=== PATIENT | male | born 1960 | race Two or more races ===

== ENCOUNTER 2022-06-20 05:28 | Inpatient (IN) | payer MEDICAID ==
[~2022-06-20] VITALS: Ht 182.9 cm; Wt 85.0 kg
[2022-06-20 06:09] LABS: Basophils # (auto) 0.1 10 ^3/uL (0-0.2); Basophils % (auto) 1.2 % (0.0-2.0); Eosinophils # (auto) 0.2 10 ^3/uL (0-0.8); Eosinophils % (auto) 2.9 % (0.0-7.0); Hematocrit 42.5 % (41.0-53.0); Hemoglobin 14.3 g/dL (13.5-17.5); Lymphocytes # (auto) 1.4 10 ^3/uL (0.4-5.4); Lymphocytes % (auto) 16.2 % (10.0-50.0); Mean Corpuscular Hemoglobin 30.8 pg (28.0-32.0); Mean Corpuscular Hgb Conc. 33.5 g/dL (32.0-36.0); Mean Corpuscular Volume 91.7 fL (80.0-100.0); Monocytes # (auto) 0.9 10 ^3/uL (0-1.3); Monocytes % (auto) 10.5 % (0.0-12.0); Neutrophils # (auto) 5.9 10 ^3/uL (1.6-8.6); Neutrophils % (auto) 69.2 % (37.0-80.0); Nucleated Red Blood Cells % 0.1 %; Red Blood Cells 4.64 10^6/uL (4.5-5.90); White Blood Cell 8.5 10^3/uL (4.4-10.8)
[2022-06-20 06:24] LABS: INR 1.12 (0.9-1.15)
[2022-06-20 06:37] LABS: Albumin 3.1 g/dL (3.4-5.0); Calcium 8.8 mg/dL (8.5-10.1); Potassium 4.7 mmol/L (3.5-5.1)
[2022-06-20 06:42] LABS: BUN/Creatinine Ratio 19.7 (10.0-20.0); Total Protein 6.6 g/dL (6.4-8.2)
[2022-06-20] MEDS ORDERED: ASPirin 81 mg TAB PO ONE (09:00)
[2022-06-20] MEDS ORDERED: FUROSEMIDE 40 MG/4 ML VIAL IV ONE (09:00)
[2022-06-20] MEDS ORDERED: NICOTINE 21MG/24 HR TOPICAL PATCH TD ONE (09:15)
[2022-06-20] MEDS ORDERED: MORPHINE SULFATE INJ 2 MG/ml SYRG IV PRN (09:15)
[2022-06-20] MEDS ORDERED: NITROGLYCERIN 0.4 MG SL TAB SL PRN (09:15)
[2022-06-20] MEDS ORDERED: PANT40T PO (09:21)
[2022-06-20] MEDS ORDERED: FURO40TA4 PO (09:21)
[2022-06-20] MEDS ORDERED: LISI2.5T47 PO (09:21)
[2022-06-20] MEDS ORDERED: CARV3.1240 PO (09:21)
[2022-06-20] MEDS ORDERED: ENOXAPARIN SOD 100 MG/1 ML SYRINGE SC ONE (09:45)
[2022-06-20] MEDS: PANTOPRAZOLE 40 MG TAB PO SCH (09:58)
[2022-06-20] MEDS: CARVEDILOL 3.125 MG TAB PO SCH ×2 (09:59→21:46)
[2022-06-20] MEDS ORDERED: ENOXAPARIN SOD 100 MG/1 ML SYRINGE SC SCH (10:00)
[2022-06-20] MEDS ORDERED: FUROSEMIDE 20 MG/2 ML VIAL IV SCH (10:00)
[2022-06-20 10:02] LABS: Cholesterol 123 mg/dL (< 200); Triglycerides 82 mg/dL (< 150)
[2022-06-20 10:05] LABS: HDL Cholesterol 36 mg/dL (40-59); LDL Cholesterol 75 mg/dL (< 100)
[2022-06-20] MEDS: ENOXAPARIN SOD 100 MG/1 ML SYRINGE SC SCH (21:46)
[2022-06-21 06:30] LABS: Basophils # (auto) 0.2 10 ^3/uL (0-0.2); Basophils % (auto) 2.6 % (0.0-2.0); Eosinophils # (auto) 0.5 10 ^3/uL (0-0.8); Eosinophils % (auto) 6.3 % (0.0-7.0); Hematocrit 40.9 % (41.0-53.0); Hemoglobin 13.8 g/dL (13.5-17.5); Lymphocytes # (auto) 1.7 10 ^3/uL (0.4-5.4); Lymphocytes % (auto) 23.4 % (10.0-50.0); Mean Corpuscular Hemoglobin 30.6 pg (28.0-32.0); Mean Corpuscular Hgb Conc. 33.7 g/dL (32.0-36.0); Mean Corpuscular Volume 90.8 fL (80.0-100.0); Monocytes # (auto) 0.7 10 ^3/uL (0-1.3); Monocytes % (auto) 9.8 % (0.0-12.0); Neutrophils # (auto) 4.2 10 ^3/uL (1.6-8.6); Neutrophils % (auto) 57.9 % (37.0-80.0); Nucleated Red Blood Cells % 0.1 %; Red Cell Distribution Width 14.5 % (11.8-14.3); White Blood Cell 7.3 10^3/uL (4.4-10.8)
[2022-06-21 06:49] LABS: Calcium 8.5 mg/dL (8.5-10.1); Potassium 4.5 mmol/L (3.5-5.1)
[2022-06-21 06:50] LABS: BUN/Creatinine Ratio 20.5 (10.0-20.0); Phosphorus 2.2 mg/dL (2.5-4.90); Uric Acid 9.8 mg/dL (3.5-7.2)
[2022-06-21 09:44] LABS: Urine Bacteria FEW /hpf (None Seen); Urine Blood TRACE /uL (Negative); Urine Specific Gravity 1.019 (1.001-1.035); Urine WBC 12 /hpf (0 - 3)
[2022-06-21] MEDS: FUROSEMIDE 20 MG/2 ML VIAL IV SCH (09:48)
[2022-06-21] MEDS: ASPirin 81 mg TAB PO SCH (09:48)
[2022-06-21] MEDS: CARVEDILOL 3.125 MG TAB PO SCH ×2 (09:49→22:24)
[2022-06-21] MEDS: PANTOPRAZOLE 40 MG TAB PO SCH (09:49)
[2022-06-21] MEDS: NICOTINE 21MG/24 HR TOPICAL PATCH TD SCH (09:49)
[2022-06-21] MEDS: ENOXAPARIN SOD 100 MG/1 ML SYRINGE SC SCH ×2 (09:49→22:24)
[2022-06-21 09:58] LABS: Protein, Urine 32.4 mg/dL (0.0-11.9)
[2022-06-21] MEDS ORDERED: ALBUTEROL SULF 2.5 MG/0.5ML(0.5%) NEB SOLN NEB PRN (13:30)
[2022-06-21] MEDS ORDERED: IPRATROPIUM BROM 0.5 MG/2.5ML INH SOL NEB PRN (13:30)
[2022-06-21] MEDS ORDERED: methylPREDNISolone SOD SUCC 40 MG/ML VL IV SCH (14:00)
[2022-06-21 14:40] VITALS: BP 116/82
[2022-06-21] MEDS: methylPREDNISolone SOD SUCC 40 MG/ML VL IV SCH ×2 (15:30→22:23)
[2022-06-21 17:00] VITALS: BP 124/90
[2022-06-21 20:00] VITALS: BP 129/86
[2022-06-21 22:00] VITALS: BP 129/86
[2022-06-21] MEDS: ATORVASTATIN 20 MG TAB PO SCH (22:24)
[2022-06-22] MEDS: TEMAZEPAM 15 MG CAP PO PRN ×2 (01:00→22:25)
[2022-06-22 05:00] VITALS: BP 129/98
[2022-06-22 05:42] LABS: Calcium 8.6 mg/dL (8.5-10.1); Potassium 4.5 mmol/L (3.5-5.1)
[2022-06-22] MEDS: methylPREDNISolone SOD SUCC 40 MG/ML VL IV SCH ×3 (05:59→22:27)
[2022-06-22 08:30] VITALS: BP 133/101
[2022-06-22 09:00] VITALS: BP 139/98
[2022-06-22] MEDS: ASPirin 81 mg TAB PO SCH (09:23)
[2022-06-22] MEDS: PANTOPRAZOLE 40 MG TAB PO SCH (09:23)
[2022-06-22] MEDS: cefTRIAXone 1GM/50ML D5W 50 ML IV SCH (09:24)
[2022-06-22] MEDS: FUROSEMIDE 20 MG/2 ML VIAL IV SCH (09:24)
[2022-06-22] MEDS: CARVEDILOL 3.125 MG TAB PO SCH ×2 (09:24→22:27)
[2022-06-22] MEDS: ENOXAPARIN SOD 100 MG/1 ML SYRINGE SC SCH (09:24)
[2022-06-22] MEDS: NICOTINE 21MG/24 HR TOPICAL PATCH TD SCH (09:30)
[2022-06-22] MEDS ORDERED: levoFLOXacin 500MG 100 ML IV SCH (10:00)
[2022-06-22 13:00] VITALS: BP 116/66
[2022-06-22 16:00] LABS: Amphetamine Screen, Urine POSITIVE (NEGATIVE); Barbiturate Scree,Urine NEGATIVE (NEGATIVE); Benzodiazephine Screen, Urine NEGATIVE (NEGATIVE); Cannabinoid Screen, Urine NEGATIVE (NEGATIVE); Cocaine Screen, Urine NEGATIVE (NEGATIVE)
[2022-06-22 16:09] LABS: Opiate Scree,Urine NEGATIVE (NEGATIVE); Phencyclidine Screen, Urine NEGATIVE (NEGATIVE)
[2022-06-22 17:18] VITALS: BP 133/94
[2022-06-22 22:00] VITALS: BP 132/89
[2022-06-22] MEDS: SACUBITRIL-VALSARTAN 24mg/26mg TAB PO SCH (22:25)
[2022-06-22] MEDS: ATORVASTATIN 20 MG TAB PO SCH (22:27)
[2022-06-22] MEDS: APIXABAN 5 MG TAB PO SCH (22:28)
[2022-06-23 05:00] VITALS: BP 132/91
[2022-06-23] MEDS: methylPREDNISolone SOD SUCC 40 MG/ML VL IV SCH ×2 (05:50→12:58)
[2022-06-23] MEDS: cefTRIAXone 1GM/50ML D5W 50 ML IV SCH (08:48)
[2022-06-23] MEDS: SACUBITRIL-VALSARTAN 24mg/26mg TAB PO SCH (08:49)
[2022-06-23] MEDS: NICOTINE 21MG/24 HR TOPICAL PATCH TD SCH (08:49)
[2022-06-23] MEDS: APIXABAN 5 MG TAB PO SCH (08:49)
[2022-06-23] MEDS: ASPirin 81 mg TAB PO SCH (08:49)
[2022-06-23] MEDS: CARVEDILOL 3.125 MG TAB PO SCH (08:50)
[2022-06-23] MEDS: PANTOPRAZOLE 40 MG TAB PO SCH (08:50)
[2022-06-23 09:00] VITALS: BP 142/96
[2022-06-23 12:00] LABS: BUN/Creatinine Ratio 20.7 (10.0-20.0); Calcium 8.4 mg/dL (8.5-10.1); Potassium 4.6 mmol/L (3.5-5.1)
[2022-06-23 13:00] VITALS: BP 135/87
[2022-06-23] MEDS ORDERED: FURO40TA4 PO (15:54)
[2022-06-23] MEDS ORDERED: PANT40T PO (15:54)
[2022-06-23] MEDS ORDERED: LISI2.5T47 PO (15:54)
[2022-06-23] MEDS ORDERED: APIX2.5T PO (15:54)
[2022-06-23] MEDS ORDERED: CARV3.1240 PO (15:54)
[2022-06-23 16:11] VITALS: BP 140/92
[2022-06-23 17:00] VITALS: BP 125/93
== END 2022-06-23 20:05 | disposition home or self-care (01) | DRG 190 ==
LOC: ER 05:28 → TELE 09:21 → TELE-EAST 06-21 14:03
PROVIDERS: ADMIT Nurse Practitioner Family; ATTEND Hospitalist
DX: I21.4 Non-ST elevation (NSTEMI) myocardial infarction (principal); I50.41 Acute combined systolic (congestive) and diastolic (congestive) heart failure; N17.9 Acute kidney failure, unspecified; I27.20 Pulmonary hypertension, unspecified; I42.0 Dilated cardiomyopathy; I13.0 Hypertensive heart and chronic kidney disease with heart failure and stage 1 through stage 4 chronic kidney disease, or unspecified chronic kidney disease; N18.32 Chronic kidney disease, stage 3b; I08.0 Rheumatic disorders of both mitral and aortic valves; J91.8 Pleural effusion in other conditions classified elsewhere; F15.10 Other stimulant abuse, uncomplicated; F17.210 Nicotine dependence, cigarettes, uncomplicated; Z79.899 Other long term (current) drug therapy
CPT/HCPCS: 36415; 71045; 76775; 80048; 80053; 80061; 80307; 81001; 82570; 83036; 83880; 84100; 84156; 84300; 84443; 84484; 84550; 85025; 85610; 85730; 93005; 93306; 93971; 96374; 97163; G0378; J0696

== ENCOUNTER 2024-04-03 17:04 | Inpatient (IN) | payer MEDICAID ==
[~2024-04-03] VITALS: Ht 185.4 cm; Wt 158.5 kg
[2024-04-03] MEDS: HEPARIN DRIP/D5W 100UNITS/ML 250 ML IV SCH (01:45)
[~2024-04-03 17:04] MED LIST: APIX2.5T PO; CARV3.1240 PO; FURO40TA4 PO; LISI2.5T47 PO; PANT40T PO
--- NOTE | 2024-04-03 17:38 | DVH ---
CHEST RADIOGRAPH Indication: cp Technique: Single frontal view of the chest was obtained Comparison: XY CHEST PORTABLE on DOS: 06/20/22 FINDINGS: Lines and Tubes: None Lungs: No focal consolidation. Pleura: No effusion. No pneumothorax. Cardiomediastinal contours: Cardiac size unchanged from 06/20/2022 Bones: No acute osseous abnormality. IMPRESSION: 1. No acute cardiopulmonary disease.
--- NOTE | 2024-04-03 17:54 | ED.PDOC ---
History of Present Illness HPI Comments 64-year-old male who comes in with chief complaint of shortness a breath as well as some chest pain. The patient states that the shortness for breath started approximately four days ago. The patient then started with some left-sided chest pain which she states started a week ago but has worsened over the past couple of days. There has been no cough, fever or chills. The patient was able to ambulate into the emergency department's without any difficulty. Chief Complaint: Shortness of Breath Time Seen by MD: 17:06 Primary Care Provider: NONE Reviewed Notes: Nurses Notes, Medications, Allergies (No allergies to medications) Allergies: Coded Allergies: NO KNOWN ALLERGIES (Unverified , 06/20/22) Home Meds Active Scripts Apixaban Base (ELIQUIS) 2.5 Mg Tab, 2.5 MG PO BID, #90 TAB Prov:DONALD LIMA MD 06/23/22 Pantoprazole Sodium Sesquihydr (Pantoprazole Sodium) 40 Mg Tab, 1 TAB PO DAILY, #30 TAB Prov:DONALD LIMA MD 06/23/22 Furosemide (Furosemide) 40 Mg Tab, 1 TAB PO BID, #90 TAB Prov:DONALD LIMA MD 06/23/22 Lisinopril (Lisinopril) 2.5 Mg Tab, 1 TAB PO BID, #60 TAB Prov:DONALD LIMA MD 06/23/22 Carvedilol (Carvedilol) 3.125 Mg Tab, 1 TAB PO BID, #90 TAB Prov:DONALD LIMA MD 06/23/22 Information Source: Patient Mode of Arrival: Ambulatory Severity: Moderate Timing: Days Duration: Since onset Prehospital treatment: None Location: Left-sided chest pain that is nonradiating. The pain is somewhat pressure-like and associated with shortness for breath Past Medical History PAST MEDICAL HISTORY: CHF Surgical History (Other): Penile surgery Family History Family History: Reviewed,noncontributory to illness Social History Smoker: Cigarettes Alcohol: Denies ETOH Use Drugs: Methamphetamine Lives In: Home Constitutional: denies: chills, diaphoresis, fatigue, fever, malaise, sweats, weakness, others EENTM: denies: blurred vision, double vision, ear bleeding, ear discharge, ear drainage, ear pain, ear ringing, eye pain, eye redness, hearing loss, mouth pain, mouth swelling, nasal discharge, nose bleeding, nose congestion, nose pain, photophobia, tearing, throat pain, throat swelling, voice changes, others Respiratory: reports: shortness of breath; denies: cough, hemoptysis, orthopnea, SOB at rest, SOB with excertion, stridor, wheezing, others Cardiovascular: reports: chest pain; denies: dizzy spells, diaphoresis, Dyspnea on exertion, edema, irregular heart beat, left arm pain, lightheadedness, palpitations, PND, syncope, others Gastrointestinal: denies: abdomen distended, abdominal pain, blood streaked bowels, constipated, diarrhea, dysphagia, difficulty swallowing, hematemesis, melena, nausea, poor appetite, poor fluid intake, rectal bleeding, rectal pain, vomiting, others Genitourinary: denies: burning, dysuria, flank pain, frequency, hematuria, incontinence, penile discharge, penile sore, pain, testicle pain, testicle swelling, urgency, others Neurological: denies: dizziness, fainting, headache, left sided numbness, left sided weakness, numbness, paresthesia, pre-existing deficit, right sided numbness, right sided weakness, seizure, speech problems, tingling, tremors, weakness, others Musculoskeletal: denies: back pain, gout, joint pain, joint swelling, muscle pain, muscle stiffness, neck pain, others Integumetry: denies: bruises, change in color, change in hair/nails, dryness, laceration, lesions, lumps, rash, wounds, others Allergic/Immunocompromised: denies: Difficulty Healing, Frequent Infections, Hives, Itching, others Hematologic/Lymphatic: denies: anemia, blood clots, easy bleeding, easy bruising, swollen glands, others Endocrine: denies: excessive hunger, excessive sweating, excessive thirst, excessive urination, flushing, intolerance to cold, intolerance to heat, u nexplained weight gain, unexplained weight loss, others Psychiatric: denies: anxiety, bipolar disorder, depression, hopeless, panic disorder, schizophrenia, sleepless, suicidal, others Physical Exam General Appearance: Moderate Distress HEENT: Normal ENT Inspection, Pharynx Normal, TMs Normal Neck: Full Range of Motion, Non-Tender, Normal, Normal Inspection Respiratory: Chest Non-Tender, Lungs Clear, No Accessory Muscle Use, No Respiratory Distress, Normal Breath Sounds Cardiovascular: No Edema, No JVD, No Murmur, No Gallop, Normal Peripheral Pulses, Regular Rate/Rhythm Breast Exam: Deferred Gastrointestinal: No Organomegaly, Non Tender, No Pulsatile Mass, Normal Bowel Sounds, Soft Genitalia: Deferred Pelvic: Deferred Rectal: Deferred Extremities: No calf tenderness, Normal capillary refill, Normal inspection, Normal range of motion, Non-tender, No pedal edema Musculoskeletal : Apperance: Normal Neurologic: Alert, snorkelling instructor II-XII nml as Tested, No Motor Deficits, Normal Affect, Normal Mood, No Sensory Deficits Cerebellar Function: Normal Reflexes: Normal Skin: Dry, Normal Color, Warm Lymphatic: No Adenopathy Was a procedure done? Was a procedure done?: No EKG EKG : Pulse Rate (adult): 114 [place]: Normal Cardiac Rhythm: ST Hypertrophy: LAE ST: Nonsp Differential Dx Considerations may include: Generalized weakness, chest pain, shortness for breath, COPD X-Ray, Labs, Meds, VS Vital Signs Date Time Temp Pulse Resp B/P (MAP) Pulse Ox O2 Delivery O2 Flow Rate FiO2 04/03/24 17:54 114 04/03/24 17:31 20 96 Room Air 0 04/03/24 17:21 98.1 113 15 154/88 (110) 96 04/03/24 17:19 114 Lab Test 04/03/24 19:09 04/03/24 17:47 Range/Units Troponin I High Sensitivity Pending 255 *H </=54 ng/L White Blood Count 8.2 4.4-10.8 10^3/uL Red Blood Count 4.42 L 4.5-5.90 10^6/uL Hemoglobin 13.5 13.5-17.5 g/dL Hematocrit 40.7 L 41.0-53.0 % Mean Corpuscular Volume 91.9 80.0-100.0 fL Mean Corpuscular Hemoglobin 30.5 28.0-32.0 pg Mean Corpuscular Hemoglobin Concent 33.1 32.0-36.0 g/dL Red Cell Distribution Width 14.7 H 11.8-14.3 % Platelet Count 337 140-450 10^3/uL Mean Platelet Volume 8.2 6.9-10.8 fL Neutrophils (%) (Auto) 69.5 37.0-80.0 % Lymphocytes (%) (Auto) 14.7 10.0-50.0 % Monocytes (%) (Auto) 9.5 0.0-12.0 % Eosinophils (%) (Auto) 4.4 0.0-7.0 % Basophils (%) (Auto) 1.9 0.0-2.0 % Neutrophils # (Auto) 5.7 1.6-8.6 10 ^3/uL Lymphocytes # (Auto) 1.2 0.4-5.4 10 ^3/uL Monocytes # (Auto) 0.8 0-1.3 10 ^3/uL Eosinophils # (Auto) 0.4 0-0.8 10 ^3/uL Basophils # (Auto) 0.2 0-0.2 10 ^3/uL Nucleated Red Blood Cells 0.1 % Prothrombin Time Pending Prothrombin Time INR Pending Activated Partial Thromboplast Time Pending Sodium Level 141 136-145 mmol/L Potassium Level 4.9 3.5-5.1 mmol/L Chloride Level 108 H 98-107 mmol/L Carbon Dioxide Level 24 20-31 mmol/L Anion Gap 9 5-15 Blood Urea Nitrogen 34 H 9-23 mg/dL Creatinine 2.09 H 0.700-1.30 mg/dL Glomerular Filtration Rate Calc 35 >90 mL/min BUN/Creatinine Ratio 16.3 10.0-20.0 Serum Glucose 78 74-106 mg/dL Calcium Level 9.5 8.7-10.4 mg/dL B-Type Natriuretic Peptide 1325.35 0-100 pg/mL IV Hep-Lock was established The BNP is 1325 The 1st troponin level came back at 255 The CBC and chemistry panel shows a BUN of 34 and a creatinine at 2.09 The patient was being given Lopressor for the elevated heart rate The patient was given aspirin here in the emergency department's The patient was being started on heparin 4000 units IV push The patient will then be started on the heparin drip The chest x-ray is negative We did speak with Dr. Hargrove who is the tetryl screen operator on-call and he will be consulting on this patient Images Reviewed?: Images reviewed and evaluated by me Time of 1ST Reevaluation: 18:52 Reevaluation 1ST: Unchanged Patient Education/Counseling: Diagnosis, Treatment, Prognosis Family Education/Counseling: No Family Present Departure 1 Departure Time of Disposition: 18:56 Impression: Primary Impression: NSTEMI (non-ST elevated myocardial infarction) Additional Impression: Elevated troponin Disposition: 09 ADMITTED INPATIENT Admit to: Tele Condition: Fair Critical Care Note Critical Care Time?: Yes (45 min-critical care time only) Stability Stability form required: Yes Unstable for transfer: ICU, CCU, PCU, SH[facility]ON (Intensive VS monitoring), ED Physician Assesment (Clinical assesment) Heart Score Heart Score: Heart Score Response (Comments) Value History Moderate Suspicious 1 EKG Repolarization Disturb 1 Age 45-64 1 Risk Factors >3 or Hx ASHD 2 Troponin >3 x's Normal limit 2 Total 7 JESSICA OCONNELL MD Apr 03, 2024 17:54
[2024-04-03 18:15] LABS: Basophils # (auto) 0.2 10 ^3/uL (0-0.2); Basophils % (auto) 1.9 % (0.0-2.0); Eosinophils # (auto) 0.4 10 ^3/uL (0-0.8); Eosinophils % (auto) 4.4 % (0.0-7.0); Hematocrit 40.7 % (41.0-53.0); Hemoglobin 13.5 g/dL (13.5-17.5); Lymphocytes # (auto) 1.2 10 ^3/uL (0.4-5.4); Lymphocytes % (auto) 14.7 % (10.0-50.0); Mean Corpuscular Hemoglobin 30.5 pg (28.0-32.0); Mean Corpuscular Hgb Conc. 33.1 g/dL (32.0-36.0); Mean Corpuscular Volume 91.9 fL (80.0-100.0); Monocytes # (auto) 0.8 10 ^3/uL (0-1.3); Monocytes % (auto) 9.5 % (0.0-12.0); Neutrophils # (auto) 5.7 10 ^3/uL (1.6-8.6); Neutrophils % (auto) 69.5 % (37.0-80.0); Nucleated Red Blood Cells % 0.1 %; Platelet Count (auto) 337 10^3/uL (140-450); Red Blood Cells 4.42 10^6/uL (4.5-5.90); Red Cell Distribution Width 14.7 % (11.8-14.3); White Blood Cell 8.2 10^3/uL (4.4-10.8)
[2024-04-03 18:36] LABS: Potassium 4.9 mmol/L (3.5-5.1); Sodium 141 mmol/L (136-145)
[2024-04-03 18:37] LABS: Anion Gap 9 (5-15); Carbon Dioxide 24 mmol/L (20-31)
[2024-04-03 18:38] LABS: Calcium 9.5 mg/dL (8.7-10.4)
[2024-04-03 18:39] LABS: Chloride 108 mmol/L (98-107)
[2024-04-03 18:42] LABS: Glucose 78 mg/dL (74-106)
[2024-04-03 18:43] LABS: BUN/Creatinine Ratio 16.3 (10.0-20.0)
[2024-04-03 18:46] LABS: Blood Urea Nitrogen 34 mg/dL (9-23)
[2024-04-03] MEDS ORDERED: TEMAZEPAM 15 MG CAP PO PRN (19:45)
[2024-04-03] MEDS ORDERED: NITROGLYCERIN 0.4 MG SL TAB SL PRN (19:45)
[2024-04-03] MEDS ORDERED: ONDANSETRON HCL 4 MG/2 ML VIAL IV PRN (19:45)
[2024-04-03] MEDS ORDERED: MORPHINE SULFATE INJ 2 MG/ml SYRG IV PRN (19:45)
[2024-04-03 19:51] LABS: INR 1.11 (0.9-1.15); Partial Thromboplastin Time 29.2 SEC (24.5-34.5); Prothrombin Time 11.6 sec (9.3-11.8)
--- NOTE | 2024-04-03 23:25 | DVHHP2 ---
History of Present Illness Reason for Visit: Shortness for breath History of Present Illness 64-year-old male presents for evaluation of shortness for breath. Patient reports a four day history worsening shortness for breath with associated intermittent left-sided sharp pain. He denies nausea or vomiting. Denies cough or fever. He also reports bilateral lower extremity mild edema with redness. Past Medical History Hypertension and congestive heart failure Past Surgical History Denies Family History Noncontributory Smoke: No ALCOHOL: none Drugs: None Lives: with Family Review of Systems Review of Systems Review of systems are currently negative otherwise addressed in HPI. Allergies: Coded Allergies: NO KNOWN ALLERGIES (Unverified , 06/20/22) Medications Current Medications Medications Dose Ordered Sig/Piedad Route Start Time Stop Time Status Last Admin Dose Admin Heparin Sodium/ Dextrose 250 ml @ 10 mls/hr Q24H IV 04/03/24 19:00 Aspirin 162 mg DAILY PO 04/04/24 10:00 Atorvastatin Calcium 20 mg HS PO 04/03/24 22:00 Furosemide 20 mg DAILY IV 04/04/24 10:00 Carvedilol 3.125 mg Q12HR PO 04/03/24 22:00 Lisinopril 2.5 mg DAILY PO 04/04/24 10:00 Temazepam 15 mg QHSP PRN PO 04/03/24 19:45 Ondansetron HCl 4 mg Q4HP PRN IV 04/03/24 19:45 Nitroglycerin 0.4 mg Q5MINP PRN SL 04/03/24 19:45 Morphine Sulfate 2 mg Q30M PRN IV 04/03/24 19:45 Exam Vital Signs Vital Signs Date Time Temp Pulse Resp B/P (MAP) Pulse Ox O2 Delivery O2 Flow Rate FiO2 04/03/24 17:54 114 04/03/24 17:31 20 96 Room Air 0 04/03/24 17:21 98.1 154/88 (110) Exam Gen: 63-year-old male in mild distress Skin: Warm, dry, normal color and texture, no rash. HEENT: Normocephalic atraumatic, mucous membranes moist and pink. Neck: Cervical and supraclavicular nodes normal without enlargement, trachea is midline, thyroid gland is normal without masses. Pulmonary: Clear to auscultation and percussion bilaterally. Cardiac: Regular rate and rhythm. No murmur Abdomen: Soft, nontender, nondistended, bowel sounds present all 4 quadrants, no guarding, no rigidity, no organomegaly. Extremities: No cyanosis, clubbing, plus one bilateral pedal edema with mild erythema Neuro: Cranial nerves II through XII grossly intact, normal affect and speech, no focal motor deficits. Labs/Xrays ORDERING PHYSICIAN: JESSICA OCONNELL MD PROCEDURE(s): CXRP - CHEST PORTABLE REASON: cp ORDER NUMBER(s): [id number], ACCESSION NUMBER(s): [id number] CHEST RADIOGRAPH Indication: cp Technique: Single frontal view of the chest was obtained Comparison: XY CHEST PORTABLE on DOS: 06/20/22 FINDINGS: Lines and Tubes: None Lungs: No focal consolidation. Pleura: No effusion. No pneumothorax. Cardiomediastinal contours: Cardiac size unchanged from 06/20/2022 Bones: No acute osseous abnormality. IMPRESSION: 1. No acute cardiopulmonary disease. Labs Test 04/03/24 20:56 04/03/24 17:47 Range/Units Troponin I High Sensitivity 259 *H </=54 ng/L White Blood Count 8.2 4.4-10.8 10^3/uL Red Blood Count 4.42 L 4.5-5.90 10^6/uL Hemoglobin 13.5 13.5-17.5 g/dL Hematocrit 40.7 L 41.0-53.0 % Mean Corpuscular Volume 91.9 80.0-100.0 fL Mean Corpuscular Hemoglobin 30.5 28.0-32.0 pg Mean Corpuscular Hemoglobin Concent 33.1 32.0-36.0 g/dL Red Cell Distribution Width 14.7 H 11.8-14.3 % Platelet Count 337 140-450 10^3/uL Mean Platelet Volume 8.2 6.9-10.8 fL Neutrophils (%) (Auto) 69.5 37.0-80.0 % Lymphocytes (%) (Auto) 14.7 10.0-50.0 % Monocytes (%) (Auto) 9.5 0.0-12.0 % Eosinophils (%) (Auto) 4.4 0.0-7.0 % Basophils (%) (Auto) 1.9 0.0-2.0 % Neutrophils # (Auto) 5.7 1.6-8.6 10 ^3/uL Lymphocytes # (Auto) 1.2 0.4-5.4 10 ^3/uL Monocytes # (Auto) 0.8 0-1.3 10 ^3/uL Eosinophils # (Auto) 0.4 0-0.8 10 ^3/uL Basophils # (Auto) 0.2 0-0.2 10 ^3/uL Nucleated Red Blood Cells 0.1 % Prothrombin Time 11.6 9.3-11.8 sec Prothrombin Time INR 1.11 0.9-1.15 Activated Partial Thromboplast Time 29.2 24.5-34.5 SEC Sodium Level 141 136-145 mmol/L Potassium Level 4.9 3.5-5.1 mmol/L Chloride Level 108 H 98-107 mmol/L Carbon Dioxide Level 24 20-31 mmol/L Anion Gap 9 5-15 Blood Urea Nitrogen 34 H 9-23 mg/dL Creatinine 2.09 H 0.700-1.30 mg/dL Glomerular Filtration Rate Calc 35 >90 mL/min BUN/Creatinine Ratio 16.3 10.0-20.0 Serum Glucose 78 74-106 mg/dL Calcium Level 9.5 8.7-10.4 mg/dL B-Type Natriuretic Peptide 1325.35 0-100 pg/mL Assessment/Plan Assessment/Plan Assessment NSTEMI CHF exacerbation Chronic kidney disease Hypertension Plan Admit the patient to telemetry to the hospitalist Continue heparin drip started by ER provider NPO Echocardiogram pending Continue treatment per orders. Plan discussed with: Patient My Orders Orders - JUAN ANTONIO LAI [facility] Procedure Category Date Status Time Aspirin Tablet PHA 04/04/24 In Process 10:00 Atorvastatin (Lipitor) PHA 04/03/24 In Process 22:00 Furosemide Injection PHA 04/04/24 In Process (Lasix Injection) 10:00 Carvedilol Tablet PHA 04/03/24 In Process (Coreg Tablet) 22:00 Lisinopril Tablet PHA 04/04/24 In Process (Zestril Tablet) 10:00 Basic Metabolic Panel LAB 04/04/24 Verified 04:00 Admit ADMIT 04/03/24 Transmitted 19:40 Temazepam (Restoril) PHA 04/03/24 In Process 19:45 Ondansetron Hcl PHA 04/03/24 In Process (Zofran) 19:45 Complete Blood Count LAB 04/04/24 Verified 04:00 Npo (Nothing By DIET 04/04/24 Transmitted Mouth) Diet Breakfast Condition: Fair KRISTA 04/03/24 In Process 19:40 Bedrest With Bathroom KRISTA 04/03/24 In Process Privileg 19:40 Nitroglycerin PHA 04/03/24 In Process Sublingual (Ntrostat 19:45 Morphine Sulfate PHA 04/03/24 In Process Injection 19:45 Stat Ekg For Chest KRISTA 04/03/24 In Process Pain 19:40 Notify Md Of Changes KRISTA 04/03/24 In Process From Base 19:40 Secretary [employer] For KRISTA 04/03/24 In Process 24 Hours 19:40 Emergency Dysrhythmia [facility] 04/03/24 In Process Protocol 19:40 Rhythm Strips Once KRISTA 04/03/24 In Process Every Shift 19:40 Oxygen By Nasal RT 04/03/24 Transmitted Cannula 19:40 Date of Service: Apr 03, 2024 Billing Provider: JUAN ANTONIO LAI Common Visit Codes: [id number] INP/OBS CARE (HIGH) JUAN ANTONIO LAI Apr 03, 2024 23:24
--- NOTE | 2024-04-04 00:25 | DVH ---
CLINICAL HISTORY: r/o dvt bilateral lower extremity edema, shortness of breath TECHNIQUE: Color and duplex doppler imaging of the bilateral lower extremity veins was performed. Ves chelsey compression if possible was also performed. WID: COMPARISON: US RT LOWER DVT on DOS: 06/20/22 FINDINGS: Right Lower Extremity: Right common femoral vein: Normal compressibility and flow. Right femoral vein: Normal compressibility and flow. Right popliteal vein: Normal compressibility and flow. Proximal calf veins are normally compressible. Left Lower Extremity: Left common femoral vein: Normal compressibility and flow. Left femoral vein: Normal compressibility and flow. Left popliteal vein: Normal compressibility and flow. Proximal calf veins are normally compressible. IMPRESSION: NO SONOGRAPHIC EVIDENCE FOR DEEP VENOUS THROMBOSIS IN THE BILATERAL LOWER EXTREMITY VEINS.
[2024-04-04 01:30] VITALS: PULSE 92; RESP 20; O2SAT 96
[2024-04-04] MEDS: ASPirin 81 mg TAB PO ONE (01:35)
[2024-04-04] MEDS: FUROSEMIDE 20 MG/2 ML VIAL IV ONE (01:36)
[2024-04-04] MEDS: CARVEDILOL 3.125 MG TAB PO SCH (01:36)
[2024-04-04] MEDS: HEPARIN SODIUM (PORCINE) 5000 UNITS/ML 1ML VIAL IV ONE (01:38)
[2024-04-04] MEDS: ATORVASTATIN 20 MG TAB PO SCH (01:54)
[2024-04-04 06:32] LABS: Basophils # (auto) 0.2 10 ^3/uL (0-0.2); Basophils % (auto) 1.8 % (0.0-2.0); Eosinophils # (auto) 0.5 10 ^3/uL (0-0.8); Eosinophils % (auto) 5.3 % (0.0-7.0); Hematocrit 38.9 % (41.0-53.0); Lymphocytes # (auto) 1.7 10 ^3/uL (0.4-5.4); Lymphocytes % (auto) 18.5 % (10.0-50.0); Mean Corpuscular Hemoglobin 30.9 pg (28.0-32.0); Mean Corpuscular Hgb Conc. 33.6 g/dL (32.0-36.0); Mean Corpuscular Volume 91.9 fL (80.0-100.0); Monocytes % (auto) 11.1 % (0.0-12.0); Neutrophils # (auto) 5.7 10 ^3/uL (1.6-8.6); Neutrophils % (auto) 63.3 % (37.0-80.0); Platelet Count (auto) 308 10^3/uL (140-450); Red Blood Cells 4.23 10^6/uL (4.5-5.90); Red Cell Distribution Width 14.3 % (11.8-14.3); White Blood Cell 9.1 10^3/uL (4.4-10.8)
[2024-04-04 06:39] LABS: Calcium 9.4 mg/dL (8.7-10.4); Potassium 4.2 mmol/L (3.5-5.1); Sodium 139 mmol/L (136-145)
[2024-04-04 06:40] LABS: Anion Gap 9 (5-15); Carbon Dioxide 22 mmol/L (20-31)
[2024-04-04 06:45] LABS: BUN/Creatinine Ratio 18.7 (10.0-20.0); Glucose 99 mg/dL (74-106)
[2024-04-04 06:52] LABS: Blood Urea Nitrogen 32 mg/dL (9-23); Chloride 108 mmol/L (98-107)
[2024-04-04 07:00] LABS: INR 1.11 (0.9-1.15); Partial Thromboplastin Time 38.4 SEC (24.5-34.5); Prothrombin Time 11.6 sec (9.3-11.8)
[2024-04-04 07:30] VITALS: PULSE 101; RESP 20; O2SAT 97
[2024-04-04 08:40] LABS: Urine Bacteria None Seen /hpf (None Seen)
[2024-04-04 08:53] LABS: Urine Blood TRACE /uL (Negative); Urine Clarity Clear (Clear); Urine Color Colorless (Yellow); Urine Hyaline Cast FEW /lpf (0 - 2); Urine Protein, UAD Negative (Negative); Urine Specific Gravity 1.008 (1.001-1.035); Urine Squamous Epithelial Cell FEW /hpf (<5); Urine Urobilinogen Normal (Negative); Urine WBC 11 /HPF (0-3)
[2024-04-04 09:32] LABS: INR 1.08 (0.9-1.15); Partial Thromboplastin Time 35.6 SEC (24.5-34.5); Prothrombin Time 11.4 sec (9.3-11.8)
[2024-04-04] MEDS ORDERED: FUROSEMIDE 20 MG/2 ML VIAL IV SCH (10:00)
[2024-04-04] MEDS ORDERED: HEPARIN DRIP/D5W 100UNITS/ML 250 ML IV SCH (10:00)
--- NOTE | 2024-04-04 10:37 | DVHINCON2 ---
Date Seen: Apr 04, 2024 Referring Physician MD Mari Reason for Consultation Elevated trops, chest pain History of Present Illness This is a 64-year-old man who presented to the emergency room with a chief complaint of shortness of breath for four days. The patient complains of progressive shortness of breath associated with PND, MONTES, orthopnea, and BLE edema. He also complains of a left-sided chest pain, nonradiating, non provoked, and intermittent. He underwent a 12 lead electrocardiogram revealing a sinus tachycardia rhythm with T-wave inversion to lateral leads. Serial troponin levels have remained flat in the 200s ng/L. Patient reports being diagnosed with congestive heart failure approximally four years ago. Nevertheless he denies following up with a primary academic advisor neither compliance with GDMT for CHF. Denies undergoing ischemic workup in the past. Significant medical history includes congestive heart failure, hypertension, methamphetamine use for approximately 30 years, and a smoking exposure of 20 pack-years. Past Medical History Past medical history reviewed. No other significant than mentioned above. Past Surgical History Denies any past surgical history. Family History: FH: breast cancer G8 MOTHER Family History Denies family history for cardiovascular disease. Social History See HPI. Denies any use of alcohol. Allergies: Coded Allergies: NO KNOWN ALLERGIES (Unverified , 06/20/22) Home Meds Active Scripts Apixaban Base (ELIQUIS) 2.5 Mg Tab, 2.5 MG PO BID, #90 TAB Prov:DONALD LIMA MD 06/23/22 Pantoprazole Sodium Sesquihydr (Pantoprazole Sodium) 40 Mg Tab, 1 TAB PO DAILY, #30 TAB Prov:DONALD LIMA MD 06/23/22 Furosemide (Furosemide) 40 Mg Tab, 1 TAB PO BID, #90 TAB Prov:DONALD LIMA MD 06/23/22 Lisinopril (Lisinopril) 2.5 Mg Tab, 1 TAB PO BID, #60 TAB Prov:DONALD LIMA MD 06/23/22 Carvedilol (Carvedilol) 3.125 Mg Tab, 1 TAB PO BID, #90 TAB Prov:DONALD LIMA MD 06/23/22 Home Meds Denies any active home medications. Current Medications Current Medications Medications (Trade) Dose Ordered Sig/Piedad Route PRN Reason Start Time Stop Time Status Last Admin Aspirin 81 mg DAILY PO 04/05/24 10:00 04/03/24 20:37 DC Heparin Sodium/ Dextrose 250 ml @ 10 mls/hr Q24H IV 04/03/24 19:00 04/04/24 09:59 DC 04/03/24 01:45 Aspirin 162 mg DAILY PO 04/04/24 10:00 Atorvastatin Calcium (Lipitor) 20 mg HS PO 04/03/24 22:00 04/04/24 01:54 Furosemide (Lasix Injection) 20 mg DAILY IV 04/04/24 10:00 Carvedilol (Coreg Tablet) 3.125 mg Q12HR PO 04/03/24 22:00 04/04/24 01:36 Lisinopril (Zestril Tablet) 2.5 mg DAILY PO 04/04/24 10:00 Temazepam (Restoril) 15 mg QHSP PRN PO FOR INSOMNIA 04/03/24 19:45 Ondansetron HCl (Zofran) 4 mg Q4HP PRN IV NAUSEA / VOMITING 04/03/24 19:45 Nitroglycerin (Ntrostat Sublingual) 0.4 mg Q5MINP PRN SL FOR CHEST PAIN 04/03/24 19:45 Morphine Sulfate 2 mg Q30M PRN IV FOR CHEST PAIN 04/03/24 19:45 Heparin Sodium/ Dextrose 250 ml @ 12 mls/hr [id number] IV 04/04/24 10:00 Review of Systems Constitutional: No symptom reported Ears, Nose, & Throat: No symptom reported Eyes: No symptom reported Neurological: No symptoms reported Pulmonary/Respiratory: SOB, MONTES, PND Cardiovascular: Chest pain, BLE edema Gastrointestinal: No symptom reported Genitourinary: No symptom reported Musculoskeletal: No symptom reported Skin: No symptom reported Psychiatric: No symptom reported Endocrine: No symptom reported Hemotologic/Lymphatic: No symptom reported Vital Signs Vital Signs Date Time Temp Pulse Resp B/P (MAP) Pulse Ox O2 Delivery O2 Flow Rate FiO2 04/04/24 08:38 97.6 103 20 117/81 (93) 98 97.6 04/04/24 07:30 Nasal Cannula* 2 28 Physical Exam General Appearance: Cooperative. Disheveled. Unkept. In no acute distress Head Exam: Normal inspection Neck Exam: Normal inspection. Non-tender. Normal alignment Pulmonary/Respiratory: Chest non-tender. Clear bilateral breath sounds Cardiovascular/Chest: Regular rate and rhythm. S1, S2. Sinus rhythm with T- wave inversion to lateral leads. No murmurs. No JVD. Peripheral Pulses: 2+ Radial (R). 2+ Radial (L). 2+ Pedal (R). 2+ Pedal (L) Abdominal Exam: Normal bowel sounds. Soft. Nontender. No hepatospenomegaly. No masses Ankle Exam: Positive ankle pitting edema , 1+ Lower extremities: Positive lower extremity pitting edema, 1+ Neuro/Mental Status: A&O x4. Coherent Thoughts/Psych: Normal thought pattern. Appropriate mood and affect. Appearance: In no acute distress Skin Exam: Normal inspection. Normal color. Warm. Dry Labs/Diagnostic Data Labs Test 04/04/24 08:59 04/04/24 08:03 04/04/24 05:30 04/03/24 20:56 Range/Units Prothrombin Time 11.4 9.3-11.8 sec Prothrombin Time INR 1.08 0.9-1.15 Activated Partial Thromboplast Time 35.6 H 24.5-34.5 SEC Urine Color Colorless Yellow Urine Clarity Clear Clear Urine pH 6.0 5.0-9.0 Urine Specific [place] 1.008 1.001-1.035 Urine Protein Negative Negative Urine Ketones Negative Negative Urine Blood Trace H Negative /uL Urine Nitrite Negative Negative Urine Bilirubin Negative Negative Urine Urobilinogen Normal Negative mg/dL Urine Leukocyte Esterase Negative Negative /uL Urine RBC 8 0 - 3 /hpf Urine Microscopic WBC 11 H 0-3 /HPF Urine Squamous Epithelial Cells Few <5 /hpf Urine Bacteria None seen None Seen /hpf Urine Hyaline Casts Few 0 - 2 /lpf Urine Glucose Normal Normal mg/dL White Blood Count 9.1 4.4-10.8 10^3/uL Red Blood Count 4.23 L 4.5-5.90 10^6/uL Hemoglobin 13.0 L 13.5-17.5 g/dL Hematocrit 38.9 L 41.0-53.0 % Mean Corpuscular Volume 91.9 80.0-100.0 fL Mean Corpuscular Hemoglobin 30.9 28.0-32.0 pg Mean Corpuscular Hemoglobin Concent 33.6 32.0-36.0 g/dL Red Cell Distribution Width 14.3 11.8-14.3 % Platelet Count 308 140-450 10^3/uL Mean Platelet Volume 8.4 6.9-10.8 fL Neutrophils (%) (Auto) 63.3 37.0-80.0 % Lymphocytes (%) (Auto) 18.5 10.0-50.0 % Monocytes (%) (Auto) 11.1 0.0-12.0 % Eosinophils (%) (Auto) 5.3 0.0-7.0 % Basophils (%) (Auto) 1.8 0.0-2.0 % Neutrophils # (Auto) 5.7 1.6-8.6 10 ^3/uL Lymphocytes # (Auto) 1.7 0.4-5.4 10 ^3/uL Monocytes # (Auto) 1.0 0-1.3 10 ^3/uL Eosinophils # (Auto) 0.5 0-0.8 10 ^3/uL Basophils # (Auto) 0.2 0-0.2 10 ^3/uL Nucleated Red Blood Cells 0.0 % Sodium Level 139 136-145 mmol/L Potassium Level 4.2 3.5-5.1 mmol/L Chloride Level 108 H 98-107 mmol/L Carbon Dioxide Level 22 20-31 mmol/L Anion Gap 9 5-15 Blood Urea Nitrogen 32 H 9-23 mg/dL Creatinine 1.71 H 0.700-1.30 mg/dL Glomerular Filtration Rate Calc 44 >90 mL/min BUN/Creatinine Ratio 18.7 10.0-20.0 Serum Glucose 99 74-106 mg/dL Calcium Level 9.4 8.7-10.4 mg/dL Troponin I High Sensitivity 259 *H </=54 ng/L Test 04/03/24 17:47 Range/Units B-Type Natriuretic Peptide 1325.35 0-100 pg/mL Assessment Acute on chronic decompensated HFrEF, NYHA Class III Dilated/end-stage/drug-induced cardiomyopathy Likely NSTEMI type 2 secondary to above Pulmonary Hypertension, severe CLARISSE on CKD Methamphetamine use Tobacco dependence Medical noncompliance Plan/Recommendation (Dr. Hargrove) The patient presents with acute on chronic decompensated end-stage cardiomyopathy. We will continue further cardiac evaluation with a repeat transthoracic echocardiogram. In the meantime, initiate GDMT for CHF as renal function permits. Initiate preload and afterload reduction, strict I&Os, daily weight, and fluid restriction. DVT/VTE prophylaxis. Avoid CBBs. Conservative management given poor medical compliance and drug abuse. Consider Nephrology consultation. Thank you for allowing us to participate in this patient's care. Please call if you have any questions or concerns. This medical document was created using an electronic medical record system with voice recognition software and computerized dictation system. Although this document has been carefully reviewed, there might still be some phonetic and typographical errors. Occasional wrong-word or ``sound-alike substitutions may have occurred due to the inherent limitations of voice recognition software. These areas are purely typographical due to imperfections of the software programs and do not reflect any compromise in the patient's medical care. Estelita soto read the chart carefully and recognize, using context, where these substitutions have occurred. Plan discussed with: Patient, Other NYHA Physical activity limitations: Class3(Marked) ordinary (activity causes symtoms) Date of Service: Apr 04, 2024 Billing Provider: NAIN MADSEN Cardiology Common Codes: [id number] INP/OBS CARE (High) NAIN MADSEN Apr 04, 2024 10:37
[2024-04-04] MEDS: ASPirin 81 mg TAB PO SCH (10:41)
[2024-04-04] MEDS: ENOXAPARIN SOD 40 MG/0.4 ML SYRINGE SC ONE (10:45)
--- NOTE | 2024-04-04 12:01 | DVHPN2 ---
Subjective The patient seen and examined at bedside. The patient is still complain of shortness for breath and chest pain. Reviewed: Care Plan, H&P, Labs, Medications, Previous Orders, Radiology Changes from previous H/P or p: No Changes Objective Vitals Vital Signs Date Time Temp Pulse Resp B/P (MAP) Pulse Ox O2 Delivery O2 Flow Rate FiO2 04/04/24 08:38 97.6 103 20 117/81 (93) 98 97.6 04/04/24 07:30 Nasal Cannula* 2 28 Intake/Output Intake and Output 04/04/24 07:00 Intake Total 10 ml Balance 10 ml Intake IV Total 10 ml General Appearance: Alert, Oriented X3, Cooperative, No acute distress HEENT: Atraumatic, PERRLA, EOMI, Mucous membr. moist/pink Neck: Supple Lungs: Clear to auscultation, Normal air movement Cardiovascular: Regular rate, Normal S1, Normal S2, No murmurs, Gallops, Rubs Abdomen: Normal bowel sounds, Soft, No tenderness Neuro: Cranial nerves 3-12 NL Psych/Mental Status: Mental status NL Medications Current Medications Medications Dose Ordered Sig/Piedad Route Start Time Stop Time Status Last Admin Dose Admin Aspirin 162 mg DAILY PO 04/04/24 10:00 04/04/24 10:41 162 MG Atorvastatin Calcium 20 mg HS PO 04/03/24 22:00 04/04/24 01:54 20 MG Furosemide 20 mg DAILY IV 04/04/24 10:00 Carvedilol 3.125 mg Q12HR PO 04/03/24 22:00 04/04/24 01:36 3.125 MG Lisinopril 2.5 mg DAILY PO 04/04/24 10:00 Temazepam 15 mg QHSP PRN PO 04/03/24 19:45 Ondansetron HCl 4 mg Q4HP PRN IV 04/03/24 19:45 Nitroglycerin 0.4 mg Q5MINP PRN SL 04/03/24 19:45 Morphine Sulfate 2 mg Q30M PRN IV 04/03/24 19:45 Enoxaparin Sodium 40 mg DAILY SC 04/05/24 10:00 Furosemide 40 mg BIDD IV 04/04/24 18:00 Laboratory Results Laboratory Tests 04/04/24 05:30 Chemistry Test 04/03/24 17:47 04/04/24 05:30 Calcium Level 9.5 mg/dL (8.7-10.4) 9.4 mg/dL (8.7-10.4) Magnesium Level 2.0 mg/dL (1.6-2.6) Coagulation Test 04/03/24 17:47 04/04/24 05:30 04/04/24 08:59 Prothrombin Time 11.6 sec (9.3-11.8) 11.6 sec (9.3-11.8) 11.4 sec (9.3-11.8) Prothrombin Time INR 1.11 (0.9-1.15) 1.11 (0.9-1.15) 1.08 (0.9-1.15) Activated Partial Thromboplast Time 29.2 SEC (24.5-34.5) 38.4 SEC (24.5-34.5) H 35.6 SEC (24.5-34.5) H Lipid panel Test 04/04/24 05:30 Cholesterol Level 120 mg/dL (< 200) HDL Cholesterol 35 mg/dL (40-59) L Triglycerides Level 59 mg/dL (< 150) Cardiac Markers Test 04/03/24 17:47 B-Type Natriuretic Peptide 1325.35 pg/mL (0-100) HgA1c, TSH Test 04/04/24 05:30 Hemoglobin A1c 5.3 % A1C (<5.7) Thyroid Stimulating Hormone (TSH) Pending Urinalysis Test 04/04/24 08:03 Urine Color Colorless (Yellow) Urine Clarity Clear (Clear) Urine pH 6.0 (5.0-9.0) Urine Specific [place] 1.008 (1.001-1.035) Urine Protein Negative (Negative) Urine Ketones Negative (Negative) Urine Blood Trace /uL (Negative) H Urine Nitrite Negative (Negative) Urine Bilirubin Negative (Negative) Urine Urobilinogen Normal mg/dL (Negative) Urine Leukocyte Esterase Negative /uL (Negative) Urine RBC 8 /hpf (0 - 3) Urine Microscopic WBC 11 /HPF (0-3) H Urine Squamous Epithelial Cells Few /hpf (<5) Urine Bacteria None seen /hpf (None Seen) Urine Hyaline Casts Few /lpf (0 - 2) Urine Glucose Normal mg/dL (Normal) Labs and/or images reviewed: Labs reviewed by me Assessment/Plan Assessment/Plan Acute on chronic decompensated HFrEF, NYHA Class III Dilated/end-stage/drug-induced cardiomyopathy Likely NSTEMI type 2 secondary to above Pulmonary Hypertension, severe CLARISSE on CKD Methamphetamine use Tobacco dependence Medical noncompliance Continuing current management. 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 Advised to compliant with medical treatment Continuing with Lasix Waiting for 2D echo This medical document was created using an electronic medical record system with [employer] computerized dictation system. Although this document has been carefully reviewed, there may still be some phonetic and typographical errors. These areas are purely typographical due to imperfections of the software programs, and do not reflect any compromise in the patient's medical care. Plan discussed with: Patient Date of Service: Apr 04, 2024 Billing Provider: SHAHIDA WATERS MD Common Visit Codes: [id number] INP/OBS CARE(HIGH) SHAHIDA WATERS MD Apr 04, 2024 12:01
[2024-04-04 13:07] LABS: Amphetamine Screen, Urine Neg (NEGATIVE)
[2024-04-04 13:26] LABS: Barbiturate Scree,Urine Neg (NEGATIVE); Benzodiazephine Screen, Urine Neg (NEGATIVE); Cannabinoid Screen, Urine Neg (NEGATIVE); Cocaine Screen, Urine Neg (NEGATIVE); Opiate Scree,Urine Neg (NEGATIVE); Phencyclidine Screen, Urine Neg (NEGATIVE)
[2024-04-04] MEDS: LISINOPRIL 5 MG TAB PO SCH (13:30)
--- NOTE | 2024-04-04 14:59 | ECG ---
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
[2024-04-04 16:25] VITALS: BP 101/66; PULSE 91; RESP 18; TEMP 97.7; O2SAT 98
[2024-04-04 16:57] VITALS: BP 101/66; PULSE 91; RESP 18; TEMP 97.7; O2SAT 98
[2024-04-04] MEDS: FUROSEMIDE 40 MG/4 ML VIAL IV SCH (18:08)
--- NOTE | 2024-04-04 18:14 | DVHSR ---
APPROVED REPORT EXAM: Two-dimensional and M-mode echocardiogram with Doppler and color Doppler. Blood Pressure: 127/84 mmHg INDICATION LV assessment RISK FACTORS Height: 74, Weight: 180 DIMENSIONS LVDd7.2 (3.8-5.7cm)LA (2D)5.8 (1.9-4.0cm)Aortic Root4.2 (2.0-3.7cm) LVDs6.6 (2.5-4.0cm)LA (MM) (1.9-4.0cm)Aortic Cusp Exc1.6 (1.5-2.0cm) EF (%) 20.0 (55-70%)Rt. Atrium5.2 (1.9-4.0cm)Asc. Aorta cm IVSd1.2 (0.7-1.1cm)RV (D) (1.8-2.4cm) PWd1.3 (0.7-1.1cm) Mitral Valve MitralMitral Stenosis E wave1.20m/sMV Mean GR.mmHg A wave0.59m/sMV Peak GR.93mmHg E/A ratio2.02D MVAcm2 DECEL [id number] 1/2 Timems Aortic Valve Aortic ValveAortic Stenosis V10.55m/Jovani Mean GR.2mmHg V20.89m/Jovani Peak GR.3mmHg LVOT Diameter2.2 (1.8-2.4cm)Doppler AVA2.35cm2 Pulmonic Valve V20.86m/s Tricuspid Valve TR Velocity2.56m/s [id number] Conclusion Technically good study. Underlying sinus rhythm. Biventricular and biatrial enlargement noted with concentric LVH. Aortic root enlargement noted. Valves appear to be structurally normal. Left ventricular systolic performance is markedly diminished. EF is approximately 15-20% with underl russ severe global hypokinesis. Diminished right ventricular function is noted. There is [id number] mitral insufficiency. Severe tricuspid regurgitation. Mild pulmonic ins ufficiency. Notable pulmonary hypertension noted. No pericardial effusion masses or vegetations.
[2024-04-04 20:00] VITALS: PULSE 89; PULSE 94; RESP 16; O2SAT 99
[2024-04-04 21:00] VITALS: BP 98/68; PULSE 89; RESP 16; TEMP 97.5; O2SAT 99
[2024-04-05] VITALS (9 sets, daily range): BP systolic 93–128; BP diastolic 59–83; PULSE 50–103; RESP 16–18; TEMP 97.1–98.3; O2SAT 95–99
[2024-04-05 06:44] LABS: Basophils # (auto) 0.1 10 ^3/uL (0-0.2); Basophils % (auto) 1.4 % (0.0-2.0); Eosinophils # (auto) 0.5 10 ^3/uL (0-0.8); Eosinophils % (auto) 5.9 % (0.0-7.0); Hematocrit 41.6 % (41.0-53.0); Hemoglobin 13.9 g/dL (13.5-17.5); Lymphocytes # (auto) 1.6 10 ^3/uL (0.4-5.4); Lymphocytes % (auto) 17.1 % (10.0-50.0); Mean Corpuscular Hemoglobin 30.4 pg (28.0-32.0); Mean Corpuscular Hgb Conc. 33.4 g/dL (32.0-36.0); Monocytes # (auto) 0.8 10 ^3/uL (0-1.3); Monocytes % (auto) 8.5 % (0.0-12.0); Neutrophils # (auto) 6.1 10 ^3/uL (1.6-8.6); Neutrophils % (auto) 67.1 % (37.0-80.0); Platelet Count (auto) 338 10^3/uL (140-450); Red Blood Cells 4.58 10^6/uL (4.5-5.90); Red Cell Distribution Width 14.8 % (11.8-14.3); White Blood Cell 9.1 10^3/uL (4.4-10.8)
[2024-04-05] MEDS: ENOXAPARIN SOD 40 MG/0.4 ML SYRINGE SC SCH (09:46)
[2024-04-05] MEDS ORDERED: ASPirin 81 mg TAB PO SCH (10:00)
--- NOTE | 2024-04-05 11:50 | DVHPN2 ---
Subjective The patient seen and examined at bedside. The patient is still complain of shortness for breath and chest pain. He also complains of pain. The patient has chronic pain. Reviewed: Care Plan, H&P, Labs, Medications, Previous Orders, Radiology Changes from previous H/P or p: No Changes Objective Vitals Vital Signs Date Time Temp Pulse Resp B/P (MAP) Pulse Ox O2 Delivery O2 Flow Rate FiO2 04/05/24 11:41 103 04/05/24 09:46 93/59 04/05/24 09:00 97.6 18 95 97.6 04/05/24 08:00 Room Air* 0 21 Intake/Output Intake and Output 04/05/24 07:00 Intake Total 875 ml Output Total 200 ml Balance 675 ml Intake Oral 825 ml IV Total 50 ml Output Urine Total 200 ml General Appearance: Alert, Oriented X3, Cooperative, No acute distress HEENT: Atraumatic, PERRLA, EOMI, Mucous membr. moist/pink Neck: Supple Lungs: Clear to auscultation, Normal air movement Cardiovascular: Regular rate, Normal S1, Normal S2, No murmurs, Gallops, Rubs Abdomen: Normal bowel sounds, Soft, No tenderness Neuro: Cranial nerves 3-12 NL Psych/Mental Status: Mental status NL Medications Current Medications Medications Dose Ordered Sig/Piedad Route Start Time Stop Time Status Last Admin Dose Admin Aspirin 162 mg DAILY PO 04/04/24 10:00 04/05/24 09:45 162 MG Carvedilol 3.125 mg Q12HR PO 04/03/24 22:00 04/04/24 13:29 3.125 MG Lisinopril 2.5 mg DAILY PO 04/04/24 10:00 04/04/24 13:30 2.5 MG Temazepam 15 mg QHSP PRN PO 04/03/24 19:45 Ondansetron HCl 4 mg Q4HP PRN IV 04/03/24 19:45 Nitroglycerin 0.4 mg Q5MINP PRN SL 04/03/24 19:45 Morphine Sulfate 2 mg Q30M PRN IV 04/03/24 19:45 Enoxaparin Sodium 40 mg DAILY SC 04/05/24 10:00 04/05/24 09:46 40 MG Furosemide 40 mg BIDD IV 04/04/24 18:00 04/05/24 06:00 40 MG Laboratory Results Laboratory Tests 04/04/24 05:30 04/05/24 06:00 Cardiac Markers Test 04/05/24 06:00 B-Type Natriuretic Peptide 770.79 pg/mL (0-100) Urinalysis Test 04/04/24 08:03 Urine Color Colorless (Yellow) Urine Clarity Clear (Clear) Urine pH 6.0 (5.0-9.0) Urine Specific [place] 1.008 (1.001-1.035) Urine Protein Negative (Negative) Urine Ketones Negative (Negative) Urine Blood Trace /uL (Negative) H Urine Nitrite Negative (Negative) Urine Bilirubin Negative (Negative) Urine Urobilinogen Normal mg/dL (Negative) Urine Leukocyte Esterase Negative /uL (Negative) Urine RBC 8 /hpf (0 - 3) Urine Microscopic WBC 11 /HPF (0-3) H Urine Squamous Epithelial Cells Few /hpf (<5) Urine Bacteria None seen /hpf (None Seen) Urine Hyaline Casts Few /lpf (0 - 2) Urine Glucose Normal mg/dL (Normal) Labs and/or images reviewed: Labs reviewed by me Assessment/Plan Assessment/Plan Acute on chronic decompensated HFrEF, NYHA Class III Dilated/end-stage/drug-induced cardiomyopathy Likely NSTEMI type 2 secondary to above Pulmonary Hypertension, severe CLARISSE on CKD Methamphetamine use Tobacco dependence Medical noncompliance Continuing current management. Appreciate bale opener's in put Advised to stop using meth and tobacco. Advised to compliant with medical treatment Continuing with Lasix 2D echo show EF 15%- 20%, Selling Underwriter advice conservative treatment , no further intervention due to patient non compliance and drug use. I will start patient norco PRN for moderate pain and morphine for pain control. This medical document was created using an electronic medical record system with [employer] computerized dictation system. Although this document has been carefully reviewed, there may still be some phonetic and typographical errors. These areas are purely typographical due to imperfections of the software programs, and do not reflect any compromise in the patient's medical care. Plan discussed with: Patient My Orders Orders - SHAHIDA WATERS MD Procedure Category Date Status Time * Wound Consult CONS 04/04/24 Transmitted Date of Service: Apr 05, 2024 Billing Provider: SHAHIDA WATERS MD Common Visit Codes: [id number] INP/OBS CARE(HIGH) SHAHIDA WATERS MD Apr 05, 2024 11:50
--- NOTE | 2024-04-05 13:23 | DVHPN2 ---
Consult Progress Note Date Seen: Apr 05, 2024 Subjective Review of Systems: CVS:Normal, RESPIRATORY:Normal, NEURO:Normal Other Systems: Denies any further cardiac symptoms Objective vital signs Vital Sign Date Time Temp Pulse Resp B/P (MAP) Pulse Ox O2 Delivery O2 Flow Rate FiO2 04/05/24 11:41 103 04/05/24 09:46 93/59 04/05/24 09:00 97.6 18 95 97.6 04/05/24 08:00 Room Air* 0 21 Total Intake and Output 04/04/24 04/04/24 04/05/24 15:00 23:00 07:00 Intake Total 50 ml 625 ml 200 ml Output Total 200 ml Balance 50 ml 625 ml 0 ml medications Current Medications Medications Dose Ordered Sig/Piedad Route Start Time Stop Time Status Last Admin Dose Admin Aspirin 162 mg DAILY PO 04/04/24 10:00 04/05/24 09:45 162 MG Carvedilol 3.125 mg Q12HR PO 04/03/24 22:00 04/04/24 13:29 3.125 MG Lisinopril 2.5 mg DAILY PO 04/04/24 10:00 04/04/24 13:30 2.5 MG Temazepam 15 mg QHSP PRN PO 04/03/24 19:45 Ondansetron HCl 4 mg Q4HP PRN IV 04/03/24 19:45 Nitroglycerin 0.4 mg Q5MINP PRN SL 04/03/24 19:45 Morphine Sulfate 2 mg Q30M PRN IV 04/03/24 19:45 Enoxaparin Sodium 40 mg DAILY SC 04/05/24 10:00 04/05/24 09:46 40 MG Furosemide 40 mg BIDD IV 04/04/24 18:00 04/05/24 06:00 40 MG Examination: LUNGS:Normal, CVS:Normal (Pedal edema resolved), NEURO:Normal laboratory and microbiology Laboratory Tests 04/05/24 06:00 04/04/24 05:30 Test 04/04/24 05:30 Range/Units Serum Glucose 99 74-106 mg/dL Problem List/Assessment/Plan Problem List/Assessment/Plan Acute on chronic decompensated HFrEF, NYHA Class III Dilated/end-stage/drug-induced cardiomyopathy Likely NSTEMI type 2 secondary to above Pulmonary Hypertension, severe CLARISSE on CKD Methamphetamine use Tobacco dependence Medical noncompliance Plan/Recommendation (Dr. Hargrove) The patient presents with acute on chronic decompensated end-stage cardiomyopathy. Transthoracic echocardiogram revealed EF 15-20%. Continue GDMT for CHF as renal function permits as well as preload and afterload reduction, strict I&Os, daily weight, and fluid restriction. DVT/VTE prophylaxis. Avoid CBBs. Conservative management given poor medical compliance and drug abuse. Consider Nephrology consultation. Cardiac stable. Follow-up with a primary environmental services director within 1-2 weeks post-discharge. There is no further cardiac work- up indicated. Kindly call if in need to re-consult. Thank you for allowing us to participate in this patient's care. This medical document was created using an electronic medical record system with voice recognition software and computerized dictation system. Although this document has been carefully reviewed, there might still be some phonetic and typographical errors. Occasional wrong-word or ``sound-alike substitutions may have occurred due to the inherent limitations of voice recognition software. These areas are purely typographical due to imperfections of the software programs and do not reflect any compromise in the patient's medical care. Please read the chart carefully and recognize, using context, where these substitutions have occurred. Plan discussed with: Patient, Other Date of Service: Apr 05, 2024 Billing Provider: NAIN MADSEN Cardiology Common Codes: [id number] HOSP CARE(High NAIN MADSEN Apr 05, 2024 13:23
[2024-04-06] VITALS (8 sets, daily range): BP systolic 100–132; BP diastolic 69–86; PULSE 57–100; RESP 17–20; TEMP 97.8–98.6; O2SAT 94–99
[2024-04-06 06:58] LABS: Basophils # (auto) 0.2 10 ^3/uL (0-0.2); Basophils % (auto) 2.1 % (0.0-2.0); Eosinophils # (auto) 0.6 10 ^3/uL (0-0.8); Eosinophils % (auto) 6.6 % (0.0-7.0); Hemoglobin 14.3 g/dL (13.5-17.5); Lymphocytes # (auto) 1.5 10 ^3/uL (0.4-5.4); Lymphocytes % (auto) 17.8 % (10.0-50.0); Mean Corpuscular Hemoglobin 30.9 pg (28.0-32.0); Mean Corpuscular Volume 90.8 fL (80.0-100.0); Monocytes % (auto) 11.5 % (0.0-12.0); Neutrophils # (auto) 5.2 10 ^3/uL (1.6-8.6); Nucleated Red Blood Cells % 0.1 %; Platelet Count (auto) 348 10^3/uL (140-450); Red Blood Cells 4.63 10^6/uL (4.5-5.90); Red Cell Distribution Width 14.6 % (11.8-14.3); White Blood Cell 8.4 10^3/uL (4.4-10.8)
[2024-04-06 07:11] LABS: Anion Gap 9 (5-15); Calcium 9.4 mg/dL (8.7-10.4); Carbon Dioxide 21 mmol/L (20-31); Potassium 4.7 mmol/L (3.5-5.1); Sodium 138 mmol/L (136-145)
[2024-04-06 07:12] LABS: Chloride 108 mmol/L (98-107)
[2024-04-06 07:18] LABS: BUN/Creatinine Ratio 19.3 (10.0-20.0); Glucose 103 mg/dL (74-106)
[2024-04-06 07:19] LABS: Blood Urea Nitrogen 35 mg/dL (9-23)
--- NOTE | 2024-04-06 11:47 | DVHPN2 ---
Subjective The patient seen and examined at bedside. The patient is still complain of shortness for breath and chest pain. He also complains of pain. The patient has chronic pain. Reviewed: Care Plan, H&P, Labs, Medications, Previous Orders, Radiology Changes from previous H/P or p: No Changes Objective Vitals Vital Signs Date Time Temp Pulse Resp B/P (MAP) Pulse Ox O2 Delivery O2 Flow Rate FiO2 04/06/24 10:45 132/70 04/06/24 10:45 90 04/06/24 09:00 97.8 17 96 97.8 04/06/24 08:00 Room Air* 0 21 Intake/Output Intake and Output 04/06/24 07:00 Intake Total 1415 ml Output Total 1400 ml Balance 15 ml Intake Oral 1415 ml Output Urine Total 1400 ml # Bowel Movements 2 General Appearance: Alert, Oriented X3, Cooperative, No acute distress HEENT: Atraumatic, PERRLA, EOMI, Mucous membr. moist/pink Neck: Supple Lungs: Clear to auscultation, Normal air movement Cardiovascular: Regular rate, Normal S1, Normal S2, No murmurs, Gallops, Rubs Abdomen: Normal bowel sounds, Soft, No tenderness Neuro: Cranial nerves 3-12 NL Psych/Mental Status: Mental status NL Medications Current Medications Medications Dose Ordered Sig/Piedad Route Start Time Stop Time Status Last Admin Dose Admin Aspirin 162 mg DAILY PO 04/04/24 10:00 04/06/24 10:48 162 MG Carvedilol 3.125 mg Q12HR PO 04/03/24 22:00 04/06/24 10:45 3.125 MG Lisinopril 2.5 mg DAILY PO 04/04/24 10:00 04/06/24 10:45 2.5 MG Temazepam 15 mg QHSP PRN PO 04/03/24 19:45 Ondansetron HCl 4 mg Q4HP PRN IV 04/03/24 19:45 Nitroglycerin 0.4 mg Q5MINP PRN SL 04/03/24 19:45 Morphine Sulfate 2 mg Q30M PRN IV 04/03/24 19:45 Enoxaparin Sodium 40 mg DAILY SC 04/05/24 10:00 04/06/24 10:44 40 MG Furosemide 40 mg BIDD IV 04/04/24 18:00 04/06/24 06:03 40 MG Laboratory Results Laboratory Tests 04/06/24 06:09 Chemistry Test 04/06/24 06:09 Calcium Level 9.4 mg/dL (8.7-10.4) Urinalysis Test 04/04/24 08:03 Urine Color Colorless (Yellow) Urine Clarity Clear (Clear) Urine pH 6.0 (5.0-9.0) Urine Specific [place] 1.008 (1.001-1.035) Urine Protein Negative (Negative) Urine Ketones Negative (Negative) Urine Blood Trace /uL (Negative) H Urine Nitrite Negative (Negative) Urine Bilirubin Negative (Negative) Urine Urobilinogen Normal mg/dL (Negative) Urine Leukocyte Esterase Negative /uL (Negative) Urine RBC 8 /hpf (0 - 3) Urine Microscopic WBC 11 /HPF (0-3) H Urine Squamous Epithelial Cells Few /hpf (<5) Urine Bacteria None seen /hpf (None Seen) Urine Hyaline Casts Few /lpf (0 - 2) Urine Glucose Normal mg/dL (Normal) Labs and/or images reviewed: Labs reviewed by me Assessment/Plan Assessment/Plan Acute on chronic decompensated HFrEF, NYHA Class III Dilated/end-stage/drug-induced cardiomyopathy Likely NSTEMI type 2 secondary to above Pulmonary Hypertension, severe CLARISSE on CKD Methamphetamine use Tobacco dependence Medical noncompliance Continuing current management. Appreciate telephone installer's in put Advised to stop using meth and tobacco. Advised to compliant with medical treatment Continuing with Lasix 2D echo show EF 15%- 20%, Farm Machinery Erector advice conservative treatment , no further intervention due to patient non compliance and drug use. Continue norco PRN for moderate pain and morphine for pain control. This medical document was created using an electronic medical record system with [employer] direct computerized dictation system. Although this document has been carefully reviewed, there may still be some phonetic and typographical errors. These areas are purely typographical due to imperfections of the software programs, and do not reflect any compromise in the patient's medical care. Plan discussed with: Patient My Orders Orders - SHAHIDA WATERS MD Procedure Category Date Status Time Cleanse Wound With KRISTA 04/05/24 In Process Mild Soap A 14:10 Date of Service: Apr 06, 2024 Billing Provider: SHAHIDA WATERS MD Common Visit Codes: [id number] INP/OBS CARE(HIGH) SHAHIDA WATERS MD Apr 06, 2024 11:47
[2024-04-07] VITALS (8 sets, daily range): BP systolic 103–141; BP diastolic 58–84; PULSE 49–96; RESP 16–20; TEMP 97.6–98.3; O2SAT 92–98
--- NOTE | 2024-04-07 18:58 | DVHINCON2 ---
Date of service: Apr 07, 2024 Reason for Consultation Rojelio History of Present Illness 64 years old male with past medical history of Congestive heart failure, hypertension, methamphetamine abuse, for 30 years, smoking for 20 pack years, presented with chief complaint of shortness of breath for four days associated with orthopnea and lower extremity swelling and chest pain no urinary complaints his baseline creatinine is 1.9 as of 2022 Past Medical History as per HPI Allergies: Coded Allergies: NO KNOWN ALLERGIES (Unverified , 06/20/22) Home Meds Active Scripts Apixaban Base (ELIQUIS) 2.5 Mg Tab, 2.5 MG PO BID, #90 TAB Prov:DONALD LIMA MD 06/23/22 Pantoprazole Sodium Sesquihydr (Pantoprazole Sodium) 40 Mg Tab, 1 TAB PO DAILY, #30 TAB Prov:DONALD LIMA MD 06/23/22 Furosemide (Furosemide) 40 Mg Tab, 1 TAB PO BID, #90 TAB Prov:DONALD LIMA MD 06/23/22 Lisinopril (Lisinopril) 2.5 Mg Tab, 1 TAB PO BID, #60 TAB Prov:DONALD LIMA MD 06/23/22 Carvedilol (Carvedilol) 3.125 Mg Tab, 1 TAB PO BID, #90 TAB Prov:DONALD LIMA MD 06/23/22 Family History: FH: breast cancer G8 MOTHER Review of Systems As per HPI H&P Exam Vital Signs/I&O Vital Sign Date Time Temp Pulse Resp B/P (MAP) Pulse Ox O2 Delivery O2 Flow Rate FiO2 04/07/24 17:01 98.2 79 18 103/81 (88) 95 98.2 04/06/24 20:00 Room Air* 0 21 Intake and Output 04/06/24 04/07/24 19:00 07:00 Intake Total 558 ml 915 ml Output Total 650 ml 1200 ml Balance -92 ml -285 ml Intake Oral 558 ml 915 ml Output Urine Total 650 ml 1200 ml Physical Exam General-not in any distress HEENT-normocephalic, no icterus, no pallor, neck supple Respiratory-fair air entry bilateral, no rhonchi, no wheeze [id number] heard, no murmurs appreciated Abdominal-soft, nontender, nondistended Musculoskeletal-no pedal edema, no calf tenderness Genitourinary-deferred Neuro-awake alert oriented x3, Psychiatric-not agitated, cooperative, Labs/Diagnostic Data Labs/Diagnostic Data Laboratory Tests Test 04/06/24 06:09 04/05/24 06:00 04/04/24 08:59 04/04/24 08:03 Range/Units White Blood Count 8.4 9.1 4.4-10.8 10^3/uL Red Blood Count 4.63 4.58 4.5-5.90 10^6/uL Hemoglobin 14.3 13.9 13.5-17.5 g/dL Hematocrit 42.0 41.6 41.0-53.0 % Mean Corpuscular Volume 90.8 91.0 80.0-100.0 fL Mean Corpuscular Hemoglobin 30.9 30.4 28.0-32.0 pg Mean Corpuscular Hemoglobin Concent 34.0 33.4 32.0-36.0 g/dL Red Cell Distribution Width 14.6 H 14.8 H 11.8-14.3 % Platelet Count 348 338 140-450 10^3/uL Mean Platelet Volume 8.2 8.2 6.9-10.8 fL Neutrophils (%) (Auto) 62.0 67.1 37.0-80.0 % Lymphocytes (%) (Auto) 17.8 17.1 10.0-50.0 % Monocytes (%) (Auto) 11.5 8.5 0.0-12.0 % Eosinophils (%) (Auto) 6.6 5.9 0.0-7.0 % Basophils (%) (Auto) 2.1 H 1.4 0.0-2.0 % Neutrophils # (Auto) 5.2 6.1 1.6-8.6 10 ^3/uL Lymphocytes # (Auto) 1.5 1.6 0.4-5.4 10 ^3/uL Monocytes # (Auto) 1.0 0.8 0-1.3 10 ^3/uL Eosinophils # (Auto) 0.6 0.5 0-0.8 10 ^3/uL Basophils # (Auto) 0.2 0.1 0-0.2 10 ^3/uL Nucleated Red Blood Cells 0.1 0.0 % Sodium Level 138 136-145 mmol/L Potassium Level 4.7 3.5-5.1 mmol/L Chloride Level 108 H 98-107 mmol/L Carbon Dioxide Level 21 20-31 mmol/L Anion Gap 9 5-15 Blood Urea Nitrogen 35 H 9-23 mg/dL Creatinine 1.81 H 0.700-1.30 mg/dL Glomerular Filtration Rate Calc 41 >90 mL/min BUN/Creatinine Ratio 19.3 10.0-20.0 Serum Glucose 103 74-106 mg/dL Calcium Level 9.4 8.7-10.4 mg/dL B-Type Natriuretic Peptide 770.79 0-100 pg/mL Prothrombin Time 11.4 9.3-11.8 sec Prothrombin Time INR 1.08 0.9-1.15 Activated Partial Thromboplast Time 35.6 H 24.5-34.5 SEC Urine Color Colorless Yellow Urine Clarity Clear Clear Urine pH 6.0 5.0-9.0 Urine Specific [place] 1.008 1.001-1.035 Urine Protein Negative Negative Urine Ketones Negative Negative Urine Blood Trace H Negative /uL Urine Nitrite Negative Negative Urine Bilirubin Negative Negative Urine Urobilinogen Normal Negative mg/dL Urine Leukocyte Esterase Negative Negative /uL Urine RBC 8 0 - 3 /hpf Urine Microscopic WBC 11 H 0-3 /HPF Urine Squamous Epithelial Cells Few <5 /hpf Urine Bacteria None seen None Seen /hpf Urine Hyaline Casts Few 0 - 2 /lpf Urine Glucose Normal Normal mg/dL Urine Opiates Screen Neg NEGATIVE Urine Fentanyl Screen Neg NEGATIVE Urine Barbiturates Screen Neg NEGATIVE Urine Phencyclidine Screen Neg NEGATIVE Urine Amphetamines Screen Neg NEGATIVE Urine Benzodiazepines Screen Neg NEGATIVE Urine Cocaine Screen Neg NEGATIVE Urine Cannabinoids Screen Neg NEGATIVE Test 04/04/24 05:30 04/03/24 20:56 04/03/24 19:09 04/03/24 17:47 Range/Units White Blood Count 9.1 8.2 4.4-10.8 10^3/uL Red Blood Count 4.23 L 4.42 L 4.5-5.90 10^6/uL Hemoglobin 13.0 L 13.5 13.5-17.5 g/dL Hematocrit 38.9 L 40.7 L 41.0-53.0 % Mean Corpuscular Volume 91.9 91.9 80.0-100.0 fL Mean Corpuscular Hemoglobin 30.9 30.5 28.0-32.0 pg Mean Corpuscular Hemoglobin Concent 33.6 33.1 32.0-36.0 g/dL Red Cell Distribution Width 14.3 14.7 H 11.8-14.3 % Platelet Count 308 337 140-450 10^3/uL Mean Platelet Volume 8.4 8.2 6.9-10.8 fL Neutrophils (%) (Auto) 63.3 69.5 37.0-80.0 % Lymphocytes (%) (Auto) 18.5 14.7 10.0-50.0 % Monocytes (%) (Auto) 11.1 9.5 0.0-12.0 % Eosinophils (%) (Auto) 5.3 4.4 0.0-7.0 % Basophils (%) (Auto) 1.8 1.9 0.0-2.0 % Neutrophils # (Auto) 5.7 5.7 1.6-8.6 10 ^3/uL Lymphocytes # (Auto) 1.7 1.2 0.4-5.4 10 ^3/uL Monocytes # (Auto) 1.0 0.8 0-1.3 10 ^3/uL Eosinophils # (Auto) 0.5 0.4 0-0.8 10 ^3/uL Basophils # (Auto) 0.2 0.2 0-0.2 10 ^3/uL Nucleated Red Blood Cells 0.0 0.1 % Prothrombin Time 11.6 11.6 9.3-11.8 sec Prothrombin Time INR 1.11 1.11 0.9-1.15 Activated Partial Thromboplast Time 38.4 H 29.2 24.5-34.5 SEC Sodium Level 139 141 136-145 mmol/L Potassium Level 4.2 4.9 3.5-5.1 mmol/L Chloride Level 108 H 108 H 98-107 mmol/L Carbon Dioxide Level 22 24 20-31 mmol/L Anion Gap 9 9 5-15 Blood Urea Nitrogen 32 H 34 H 9-23 mg/dL Creatinine 1.71 H 2.09 H 0.700-1.30 mg/dL Glomerular Filtration Rate Calc 44 35 >90 mL/min BUN/Creatinine Ratio 18.7 16.3 10.0-20.0 Serum Glucose 99 78 74-106 mg/dL Hemoglobin A1c 5.3 <5.7 % A1C Calcium Level 9.4 9.5 8.7-10.4 mg/dL Magnesium Level 2.0 1.6-2.6 mg/dL Triglycerides Level 59 < 150 mg/dL Cholesterol Level 120 < 200 mg/dL LDL Cholesterol 77 < 100 mg/dL HDL Cholesterol 35 L 40-59 mg/dL Thyroid Stimulating Hormone (TSH) 1.63 0.55-4.78 uIU/mL Troponin I High Sensitivity 259 *H 263 *H 255 *H </=54 ng/L B-Type Natriuretic Peptide 1325.35 0-100 pg/mL Assessment Acute kidney injury likely hemodynamic mediated Chronic kidney disease IIIb baseline Congestive heart failure exacerbation Methamphetamine abuse Recommendations Renal functions better since admission likely at his baseline Congestive heart failure management per Cardiology We will follow renal function while inpatient Plan discussed with: Patient PAULINA BERG MD Apr 07, 2024 18:58
--- NOTE | 2024-04-07 20:36 | DVHPN2 ---
Subjective in bed resting Reviewed: Care Plan, H&P, Labs, Medications, Previous Orders, Radiology Changes from previous H/P or p: No Changes Objective Vitals Vital Signs Date Time Temp Pulse Resp B/P (MAP) Pulse Ox O2 Delivery O2 Flow Rate FiO2 04/07/24 18:56 103/81 04/07/24 17:01 98.2 79 18 95 98.2 04/07/24 08:00 Room Air* 0 21 Intake/Output Intake and Output 04/07/24 05:00 Intake Total 1473 ml Output Total 1850 ml Balance -377 ml Intake Oral 1473 ml Output Urine Total 1850 ml General Appearance: Alert, Oriented X3, Cooperative, No acute distress HEENT: Atraumatic, PERRLA, EOMI, Mucous membr. moist/pink Neck: Supple Lungs: Clear to auscultation, Normal air movement Cardiovascular: Regular rate, Normal S1, Normal S2, No murmurs, Gallops, Rubs Abdomen: Normal bowel sounds, Soft, No tenderness Neuro: Cranial nerves 3-12 NL Psych/Mental Status: Mental status NL Medications Current Medications Medications Dose Ordered Sig/Piedad Route Start Time Stop Time Status Last Admin Dose Admin Aspirin 162 mg DAILY PO 04/04/24 10:00 04/07/24 11:03 162 MG Carvedilol 3.125 mg Q12HR PO 04/03/24 22:00 04/07/24 11:03 3.125 MG Lisinopril 2.5 mg DAILY PO 04/04/24 10:00 04/07/24 11:02 2.5 MG Temazepam 15 mg QHSP PRN PO 04/03/24 19:45 Ondansetron HCl 4 mg Q4HP PRN IV 04/03/24 19:45 Nitroglycerin 0.4 mg Q5MINP PRN SL 04/03/24 19:45 Morphine Sulfate 2 mg Q30M PRN IV 04/03/24 19:45 Enoxaparin Sodium 40 mg DAILY SC 04/05/24 10:00 04/07/24 11:01 40 MG Furosemide 40 mg BIDD IV 04/04/24 18:00 04/07/24 18:56 40 MG Laboratory Results Laboratory Tests 04/06/24 06:09 Urinalysis Test 04/04/24 08:03 Urine Color Colorless (Yellow) Urine Clarity Clear (Clear) Urine pH 6.0 (5.0-9.0) Urine Specific [place] 1.008 (1.001-1.035) Urine Protein Negative (Negative) Urine Ketones Negative (Negative) Urine Blood Trace /uL (Negative) H Urine Nitrite Negative (Negative) Urine Bilirubin Negative (Negative) Urine Urobilinogen Normal mg/dL (Negative) Urine Leukocyte Esterase Negative /uL (Negative) Urine RBC 8 /hpf (0 - 3) Urine Microscopic WBC 11 /HPF (0-3) H Urine Squamous Epithelial Cells Few /hpf (<5) Urine Bacteria None seen /hpf (None Seen) Urine Hyaline Casts Few /lpf (0 - 2) Urine Glucose Normal mg/dL (Normal) Assessment/Plan Assessment/Plan Acute on chronic decompensated HFrEF, NYHA Class III Dilated/end-stage/drug-induced cardiomyopathy Likely NSTEMI type 2 secondary to above Pulmonary Hypertension, severe CLARISSE on CKD Methamphetamine use Tobacco dependence Medical noncompliance Continuing current management. Appreciate ventilator specialist's in put Advised to stop using meth and tobacco. Advised to compliant with medical treatment Continuing with Lasix 2D echo show EF 15%- 20%, Automotive Glass Mechanic advice conservative treatment , no further intervention due to patient non compliance and drug use. Continue norco PRN for moderate pain and morphine for pain control. Plan discussed with: Patient Date of Service: Apr 07, 2024 Billing Provider: SILVERIO HERRON MD Common Visit Codes: [id number] INP/OBS CARE(HIGH) SILVERIO HERRON MD Apr 07, 2024 20:36
[2024-04-08] VITALS (8 sets, daily range): BP systolic 94–111; BP diastolic 51–78; PULSE 9–88; RESP 14–18; TEMP 97.6–98.7; O2SAT 93–98
--- NOTE | 2024-04-08 10:05 | DVHPN2 ---
Progress Note Date Seen: Apr 08, 2024 Medical Necessity Reason Pt with a Central, PICC or Fol: No Subjective Patient reports: No new complaints Review of Systems: Deferred Objective vital signs Vital Sign Date Time Temp Pulse Resp B/P (MAP) Pulse Ox O2 Delivery O2 Flow Rate FiO2 04/08/24 09:52 102/69 04/08/24 09:49 51 04/08/24 09:44 97.9 18 93 97.9 04/07/24 20:00 Room Air* 0 21 Total Intake and Output 04/07/24 04/07/24 04/08/24 15:00 23:00 07:00 Intake Total 825 ml 800 ml Output Total 900 ml 800 ml Balance -75 ml 0 ml medications Current Medications Medications Dose Ordered Sig/Piedad Route Start Time Stop Time Status Last Admin Dose Admin Aspirin 162 mg DAILY PO 04/04/24 10:00 04/08/24 09:53 162 MG Carvedilol 3.125 mg Q12HR PO 04/03/24 22:00 04/07/24 21:44 3.125 MG Lisinopril 2.5 mg DAILY PO 04/04/24 10:00 04/08/24 09:52 2.5 MG Temazepam 15 mg QHSP PRN PO 04/03/24 19:45 Ondansetron HCl 4 mg Q4HP PRN IV 04/03/24 19:45 Nitroglycerin 0.4 mg Q5MINP PRN SL 04/03/24 19:45 Morphine Sulfate 2 mg Q30M PRN IV 04/03/24 19:45 Enoxaparin Sodium 40 mg DAILY SC 04/05/24 10:00 04/08/24 09:53 40 MG Furosemide 40 mg BIDD IV 04/04/24 18:00 04/08/24 05:31 40 MG laboratory and microbiology Laboratory Tests 04/06/24 06:09 Test 04/06/24 06:09 Range/Units Serum Glucose 103 74-106 mg/dL Problem List/Assessment/Plan Problem List/Assessment/Plan Acute kidney injury likely hemodynamic mediated Chronic kidney disease IIIb baseline Congestive heart failure exacerbation cardiomyopathy Methamphetamine abuse Recommendations labs pending on lasix iv bid Renal function better since admission likely at his baseline Congestive heart failure management per Cardiology We will follow renal function while inpatient kidney us from 2022 noted Plan discussed with: Patient My Orders My Orders Orders - PAULINA BERG MD Procedure Category Date Status Time Basic Metabolic Panel LAB 04/08/24 Logged 09:11 PAULINA BERG MD Apr 08, 2024 10:05
[2024-04-08 11:16] LABS: Chloride 106 mmol/L (98-107); Potassium 4.4 mmol/L (3.5-5.1)
[2024-04-08 11:17] LABS: Calcium 9.6 mg/dL (8.7-10.4)
[2024-04-08 11:20] LABS: Sodium 135 mmol/L (136-145)
[2024-04-08 11:26] LABS: Blood Urea Nitrogen 57 mg/dL (9-23); Glucose 127 mg/dL (74-106)
[2024-04-08 11:52] LABS: Anion Gap 10 (5-15)
[2024-04-08 11:55] LABS: Carbon Dioxide 19 mmol/L (20-31)
[2024-04-08] MEDS: FUROSEMIDE 20 MG TAB PO SCH (17:26)
--- NOTE | 2024-04-08 19:08 | DVHPN2 ---
Subjective in bed resting Reviewed: Care Plan, H&P, Labs, Medications, Previous Orders, Radiology Changes from previous H/P or p: No Changes Objective Vitals Vital Signs Date Time Temp Pulse Resp B/P (MAP) Pulse Ox O2 Delivery O2 Flow Rate FiO2 04/08/24 17:26 102/66 04/08/24 16:34 98.7 79 18 96 98.7 04/08/24 08:00 Room Air* 0 21 Intake/Output Intake and Output 04/08/24 05:00 Intake Total 1625 ml Output Total 1700 ml Balance -75 ml Intake Oral 1625 ml Output Urine Total 1700 ml # Bowel Movements 1 General Appearance: Alert, Oriented X3, Cooperative, No acute distress HEENT: Atraumatic, PERRLA, EOMI, Mucous membr. moist/pink Neck: Supple Lungs: Clear to auscultation, Normal air movement Cardiovascular: Regular rate, Normal S1, Normal S2, No murmurs, Gallops, Rubs Abdomen: Normal bowel sounds, Soft, No tenderness Neuro: Cranial nerves 3-12 NL Psych/Mental Status: Mental status NL Medications Current Medications Medications Dose Ordered Sig/Piedad Route Start Time Stop Time Status Last Admin Dose Admin Aspirin 162 mg DAILY PO 04/04/24 10:00 04/08/24 09:53 162 MG Carvedilol 3.125 mg Q12HR PO 04/03/24 22:00 04/07/24 21:44 3.125 MG Temazepam 15 mg QHSP PRN PO 04/03/24 19:45 Ondansetron HCl 4 mg Q4HP PRN IV 04/03/24 19:45 Nitroglycerin 0.4 mg Q5MINP PRN SL 04/03/24 19:45 Morphine Sulfate 2 mg Q30M PRN IV 04/03/24 19:45 Enoxaparin Sodium 40 mg DAILY SC 04/05/24 10:00 04/08/24 09:53 40 MG Furosemide 20 mg BIDD PO 04/08/24 18:00 04/08/24 17:26 20 MG Laboratory Results Laboratory Tests 04/06/24 06:09 04/08/24 10:32 Chemistry Test 04/08/24 10:32 Calcium Level 9.6 mg/dL (8.7-10.4) Urinalysis Test 04/04/24 08:03 Urine Color Colorless (Yellow) Urine Clarity Clear (Clear) Urine pH 6.0 (5.0-9.0) Urine Specific [place] 1.008 (1.001-1.035) Urine Protein Negative (Negative) Urine Ketones Negative (Negative) Urine Blood Trace /uL (Negative) H Urine Nitrite Negative (Negative) Urine Bilirubin Negative (Negative) Urine Urobilinogen Normal mg/dL (Negative) Urine Leukocyte Esterase Negative /uL (Negative) Urine RBC 8 /hpf (0 - 3) Urine Microscopic WBC 11 /HPF (0-3) H Urine Squamous Epithelial Cells Few /hpf (<5) Urine Bacteria None seen /hpf (None Seen) Urine Hyaline Casts Few /lpf (0 - 2) Urine Glucose Normal mg/dL (Normal) Assessment/Plan Assessment/Plan Acute on chronic decompensated HFrEF, NYHA Class III Dilated/end-stage/drug-induced cardiomyopathy Likely NSTEMI type 2 secondary to above Pulmonary Hypertension, severe CLARISSE on CKD Methamphetamine use Tobacco dependence Medical noncompliance Continuing current management. Appreciate railroad firer's in put Advised to stop using meth and tobacco. Advised to compliant with medical treatment Continuing with Lasix 2D echo show EF 15%- 20%, Production Operations Engineer advice conservative treatment , no further intervention due to patient non compliance and drug use. Continue norco PRN for moderate pain and morphine for pain control. Plan discussed with: Patient Date of Service: Apr 08, 2024 Billing Provider: SILVERIO HERRON MD Common Visit Codes: [id number] INP/OBS CARE(HIGH) SILVERIO HERRON MD Apr 08, 2024 19:08
[2024-04-09] VITALS (8 sets, daily range): BP systolic 103–135; BP diastolic 53–71; PULSE 41–83; RESP 17–18; TEMP 97.6–98.3; O2SAT 95–98
[2024-04-09 06:40] LABS: Chloride 106 mmol/L (98-107)
[2024-04-09 06:41] LABS: Anion Gap 9 (5-15)
[2024-04-09 06:42] LABS: Calcium 8.9 mg/dL (8.7-10.4)
[2024-04-09 06:43] LABS: Carbon Dioxide 19 mmol/L (20-31); Potassium 5.1 mmol/L (3.5-5.1); Sodium 134 mmol/L (136-145)
[2024-04-09 06:46] LABS: Glucose 103 mg/dL (74-106)
[2024-04-09 06:47] LABS: BUN/Creatinine Ratio 27.2 (10.0-20.0)
[2024-04-09 06:53] LABS: Blood Urea Nitrogen 65 mg/dL (9-23)
--- NOTE | 2024-04-09 19:32 | DVHPN2 ---
Subjective in bed resting Reviewed: Care Plan, H&P, Labs, Medications, Previous Orders, Radiology Changes from previous H/P or p: No Changes Objective Vitals Vital Signs Date Time Temp Pulse Resp B/P (MAP) Pulse Ox O2 Delivery O2 Flow Rate FiO2 04/09/24 17:03 131/59 04/09/24 16:58 97.7 75 18 97 97.7 04/09/24 08:00 Room Air* 0 21 Intake/Output Intake and Output 04/09/24 05:00 Intake Total 1775 ml Output Total 1850 ml Balance -75 ml Intake Oral 1775 ml Output Urine Total 1850 ml # Bowel Movements 1 General Appearance: Alert, Oriented X3, Cooperative, No acute distress HEENT: Atraumatic, PERRLA, EOMI, Mucous membr. moist/pink Neck: Supple Lungs: Clear to auscultation, Normal air movement Cardiovascular: Regular rate, Normal S1, Normal S2, No murmurs, Gallops, Rubs Abdomen: Normal bowel sounds, Soft, No tenderness Neuro: Cranial nerves 3-12 NL Psych/Mental Status: Mental status NL Medications Current Medications Medications Dose Ordered Sig/Piedad Route Start Time Stop Time Status Last Admin Dose Admin Aspirin 162 mg DAILY PO 04/04/24 10:00 04/09/24 09:12 162 MG Carvedilol 3.125 mg Q12HR PO 04/03/24 22:00 04/08/24 21:28 3.125 MG Temazepam 15 mg QHSP PRN PO 04/03/24 19:45 Ondansetron HCl 4 mg Q4HP PRN IV 04/03/24 19:45 Nitroglycerin 0.4 mg Q5MINP PRN SL 04/03/24 19:45 Morphine Sulfate 2 mg Q30M PRN IV 04/03/24 19:45 Enoxaparin Sodium 40 mg DAILY SC 04/05/24 10:00 04/09/24 09:12 40 MG Furosemide 20 mg BIDD PO 04/08/24 18:00 04/09/24 17:03 20 MG Laboratory Results Laboratory Tests 04/06/24 06:09 04/09/24 05:55 Chemistry Test 04/09/24 05:55 Calcium Level 8.9 mg/dL (8.7-10.4) Urinalysis Test 04/04/24 08:03 Urine Color Colorless (Yellow) Urine Clarity Clear (Clear) Urine pH 6.0 (5.0-9.0) Urine Specific [place] 1.008 (1.001-1.035) Urine Protein Negative (Negative) Urine Ketones Negative (Negative) Urine Blood Trace /uL (Negative) H Urine Nitrite Negative (Negative) Urine Bilirubin Negative (Negative) Urine Urobilinogen Normal mg/dL (Negative) Urine Leukocyte Esterase Negative /uL (Negative) Urine RBC 8 /hpf (0 - 3) Urine Microscopic WBC 11 /HPF (0-3) H Urine Squamous Epithelial Cells Few /hpf (<5) Urine Bacteria None seen /hpf (None Seen) Urine Hyaline Casts Few /lpf (0 - 2) Urine Glucose Normal mg/dL (Normal) Assessment/Plan Assessment/Plan Acute on chronic decompensated HFrEF, NYHA Class III Dilated/end-stage/drug-induced cardiomyopathy Likely NSTEMI type 2 secondary to above Pulmonary Hypertension, severe CLARISSE on CKD Methamphetamine use Tobacco dependence Medical noncompliance Continuing current management. Appreciate embossing toolsetter's in put Advised to stop using meth and tobacco. Advised to compliant with medical treatment Continuing with Lasix 2D echo show EF 15%- 20%, Fiber Optic Splicer advice conservative treatment , no further intervention due to patient non compliance and drug use. Continue norco PRN for moderate pain and morphine for pain control. Creat going up and will need to continued watching carefully. Will decrease dose today Plan discussed with: Patient Date of Service: Apr 09, 2024 Billing Provider: SILVERIO HERRON MD Common Visit Codes: [id number] INP/OBS CARE(HIGH) SILVERIO HERRON MD Apr 09, 2024 19:32
--- NOTE | 2024-04-09 20:51 | DVHPN2 ---
Progress Note Date Seen: Apr 09, 2024 Medical Necessity Reason Pt with a Central, PICC or Fol: No Subjective Patient reports: No new complaints Objective vital signs Vital Sign Date Time Temp Pulse Resp B/P (MAP) Pulse Ox O2 Delivery O2 Flow Rate FiO2 04/09/24 20:00 18 95 Room Air* 0 21 04/09/24 17:03 131/59 04/09/24 16:58 97.7 75 97.7 Total Intake and Output 04/08/24 04/08/24 04/09/24 15:00 23:00 07:00 Intake Total 925 ml 850 ml Output Total 900 ml 950 ml Balance 25 ml -100 ml medications Current Medications Medications Dose Ordered Sig/Piedad Route Start Time Stop Time Status Last Admin Dose Admin Aspirin 162 mg DAILY PO 04/04/24 10:00 04/09/24 09:12 162 MG Carvedilol 3.125 mg Q12HR PO 04/03/24 22:00 04/08/24 21:28 3.125 MG Temazepam 15 mg QHSP PRN PO 04/03/24 19:45 Ondansetron HCl 4 mg Q4HP PRN IV 04/03/24 19:45 Nitroglycerin 0.4 mg Q5MINP PRN SL 04/03/24 19:45 Morphine Sulfate 2 mg Q30M PRN IV 04/03/24 19:45 Enoxaparin Sodium 40 mg DAILY SC 04/05/24 10:00 04/09/24 09:12 40 MG Furosemide 20 mg BIDD PO 04/08/24 18:00 04/09/24 17:03 20 MG laboratory and microbiology Laboratory Tests 04/09/24 05:55 04/06/24 06:09 Test 04/09/24 05:55 Range/Units Serum Glucose 103 74-106 mg/dL Problem List/Assessment/Plan Problem List/Assessment/Plan Acute kidney injury likely hemodynamic mediated Chronic kidney disease IIIb baseline Congestive heart failure exacerbation cardiomyopathy Methamphetamine abuse Recommendations Reduce Lasix dose DC lisinopril We will follow renal function while inpatient kidney us from 2022 noted Plan discussed with: Patient Dietary Evaluation Review Recommendations by RD: Dietary education by RD Comments: 1) Change diet order from 2g Na to renal cardiac diet 2) Refer to outpatient RD for weight management 3) Recommend tobacco and amphetamine cessation Expected Outcomes/Goals: 1) appetite and labs to improve 2) f/u in 3-5 days PAULINA BERG MD Apr 09, 2024 20:51
[2024-04-09] MEDS: SODIUM BICARBONATE 650 MG TAB PO SCH (23:21)
[2024-04-10 01:00] VITALS: BP 105/69; PULSE 84; RESP 19; TEMP 98.4; O2SAT 97
[2024-04-10 08:00] VITALS: PULSE 80; PULSE 86; RESP 18; O2SAT 98
[2024-04-10 09:00] VITALS: BP 109/79; PULSE 86; RESP 18; TEMP 98.1; O2SAT 98
[2024-04-10] MEDS: ASPirin 81 mg TAB PO SCH (09:35)
[2024-04-10] MEDS ORDERED: PANT40T PO (11:13)
[2024-04-10] MEDS ORDERED: APIX2.5T PO (11:13)
[2024-04-10] MEDS ORDERED: CARV3.1240 PO (11:13)
[2024-04-10] MEDS ORDERED: FURO1TAB31 PO (11:13)
[2024-04-10] MEDS ORDERED: LISI-275 PO (11:16)
--- NOTE | 2024-04-10 11:16 | DVHDS2 ---
Discharge Summary Date of Admission Apr 03, 2024 at 19:40 Date of Discharge: Apr 10, 2024 Labs/Diagnostic Data: Laboratory Results Test 04/09/24 05:55 04/06/24 06:09 04/05/24 06:00 04/04/24 08:59 Sodium Level 134 mmol/L (136-145) Potassium Level 5.1 mmol/L (3.5-5.1) Chloride Level 106 mmol/L (98-107) Carbon Dioxide Level 19 mmol/L (20-31) Anion Gap 9 (5-15) Blood Urea Nitrogen 65 mg/dL (9-23) Creatinine 2.39 mg/dL (0.700-1.30) Glomerular Filtration Rate Calc 30 mL/min (>90) BUN/Creatinine Ratio 27.2 (10.0-20.0) Serum Glucose 103 mg/dL (74-106) Calcium Level 8.9 mg/dL (8.7-10.4) White Blood Count 8.4 10^3/uL (4.4-10.8) Red Blood Count 4.63 10^6/uL (4.5-5.90) Hemoglobin 14.3 g/dL (13.5-17.5) Hematocrit 42.0 % (41.0-53.0) Mean Corpuscular Volume 90.8 fL (80.0-100.0) Mean Corpuscular Hemoglobin 30.9 pg (28.0-32.0) Mean Corpuscular Hemoglobin Concent 34.0 g/dL (32.0-36.0) Red Cell Distribution Width 14.6 % (11.8-14.3) Platelet Count 348 10^3/uL (140-450) Mean Platelet Volume 8.2 fL (6.9-10.8) Neutrophils (%) (Auto) 62.0 % (37.0-80.0) Lymphocytes (%) (Auto) 17.8 % (10.0-50.0) Monocytes (%) (Auto) 11.5 % (0.0-12.0) Eosinophils (%) (Auto) 6.6 % (0.0-7.0) Basophils (%) (Auto) 2.1 % (0.0-2.0) Neutrophils # (Auto) 5.2 10 ^3/uL (1.6-8.6) Lymphocytes # (Auto) 1.5 10 ^3/uL (0.4-5.4) Monocytes # (Auto) 1.0 10 ^3/uL (0-1.3) Eosinophils # (Auto) 0.6 10 ^3/uL (0-0.8) Basophils # (Auto) 0.2 10 ^3/uL (0-0.2) Nucleated Red Blood Cells 0.1 % B-Type Natriuretic Peptide 770.79 pg/mL (0-100) Prothrombin Time 11.4 sec (9.3-11.8) Prothrombin Time INR 1.08 (0.9-1.15) Activated Partial Thromboplast Time 35.6 SEC (24.5-34.5) Test 04/04/24 08:03 04/04/24 05:30 04/03/24 20:56 Urine Color Colorless (Yellow) Urine Clarity Clear (Clear) Urine pH 6.0 (5.0-9.0) Urine Specific [place] 1.008 (1.001-1.035) Urine Protein Negative (Negative) Urine Ketones Negative (Negative) Urine Blood Trace /uL (Negative) Urine Nitrite Negative (Negative) Urine Bilirubin Negative (Negative) Urine Urobilinogen Normal mg/dL (Negative) Urine Leukocyte Esterase Negative /uL (Negative) Urine RBC 8 /hpf (0 - 3) Urine Microscopic WBC 11 /HPF (0-3) Urine Squamous Epithelial Cells Few /hpf (<5) Urine Bacteria None seen /hpf (None Seen) Urine Hyaline Casts Few /lpf (0 - 2) Urine Glucose Normal mg/dL (Normal) Urine Opiates Screen Neg (NEGATIVE) Urine Fentanyl Screen Neg (NEGATIVE) Urine Barbiturates Screen Neg (NEGATIVE) Urine Phencyclidine Screen Neg (NEGATIVE) Urine Amphetamines Screen Neg (NEGATIVE) Urine Benzodiazepines Screen Neg (NEGATIVE) Urine Cocaine Screen Neg (NEGATIVE) Urine Cannabinoids Screen Neg (NEGATIVE) Hemoglobin A1c 5.3 % A1C (<5.7) Magnesium Level 2.0 mg/dL (1.6-2.6) Triglycerides Level 59 mg/dL (< 150) Cholesterol Level 120 mg/dL (< 200) LDL Cholesterol 77 mg/dL (< 100) HDL Cholesterol 35 mg/dL (40-59) Thyroid Stimulating Hormone (TSH) 1.63 uIU/mL (0.55-4.78) Troponin I High Sensitivity 259 ng/L (</=54) Other Laboratory Tests 04/09/24 05:55 04/06/24 06:09 Brief Hx & Hospital Course: Final diagnoses: Acute on chronic decompensated HFrEF, NYHA Class III Dilated/end-stage/drug-induced cardiomyopathy Likely NSTEMI type 2 secondary to above Pulmonary Hypertension, severe CKD Methamphetamine use Tobacco dependence Medical noncompliance The patient is a 64-year-old male with a history of heart failure most likely drug-induced, chronic kidney disease, pulmonary hypertension came with shortness of breaths He was diuresed with IV Lasix He said he ran out of his medication so he has not been taking anything He was resumed on his medications Patient is a room air now He can be discharged home Resume Lasix and Eliquis and carvedilol and low-dose lisinopril Condition at Discharge: Stable Final Diagnosis/Problems List Acute on chronic decompensated HFrEF, NYHA Class III Dilated/end-stage/drug-induced cardiomyopathy Likely NSTEMI type 2 secondary to above Pulmonary Hypertension, severe CKD Methamphetamine use Tobacco dependence Medical noncompliance Discharge Disposition: Home SNF Discharge Will this Physician continue t: No Discharge Statement: "Patient was advised to return to the ER or call 911 if any headaches, dizziness, shortness of breath, chest pain, abdominal pain, bleeding, fevers, or worsening of medical condition. Patient was counseled about treatment plan, medications, possible side effects, patientverbalized understanding. All questions were answered to the best of my ability. This discharge took greater then 30 minutes in planning, reviewing documentation, counseling the patient, and discussing with other team members." ASSESSMENT ASSESSMENT Assessment Date of Service: Apr 10, 2024 Billing Provider: GIOVANNI KWAN MD Common Visit Codes: 36463-DLT/OBS DISCH DAY >30min GIOVANNI KWAN MD Apr 10, 2024 11:16
--- NOTE | 2024-04-10 12:03 | DVHPN2 ---
Progress Note Date Seen: Apr 10, 2024 Medical Necessity Reason Pt with a Central, PICC or Fol: No Subjective Patient reports: No new complaints Other Systems: Patient seen and examined by myself today in follow-up Objective vital signs Vital Sign Date Time Temp Pulse Resp B/P (MAP) Pulse Ox O2 Delivery O2 Flow Rate FiO2 04/10/24 09:35 86 109/79 04/10/24 09:00 98.1 18 98 98.1 04/10/24 08:00 Room Air* 0 21 Total Intake and Output 04/09/24 04/09/24 04/10/24 15:00 23:00 07:00 Intake Total 800 ml Output Total 900 ml 400 ml Balance -100 ml -400 ml medications Current Medications Medications Dose Ordered Sig/Piedad Route Start Time Stop Time Status Last Admin Dose Admin Carvedilol 3.125 mg Q12HR PO 04/03/24 22:00 04/10/24 09:35 3.125 MG Temazepam 15 mg QHSP PRN PO 04/03/24 19:45 Ondansetron HCl 4 mg Q4HP PRN IV 04/03/24 19:45 Nitroglycerin 0.4 mg Q5MINP PRN SL 04/03/24 19:45 Morphine Sulfate 2 mg Q30M PRN IV 04/03/24 19:45 Enoxaparin Sodium 40 mg DAILY SC 04/05/24 10:00 04/10/24 09:34 40 MG Aspirin 81 mg DAILY PO 04/10/24 10:00 04/10/24 09:35 81 MG Sodium Bicarbonate 650 mg TID PO 04/09/24 22:00 04/10/24 05:59 650 MG Furosemide 20 mg DAILY PO 04/11/24 10:00 Examination: LUNGS:Normal, CVS:Normal, MSK:Normal laboratory and microbiology Laboratory Tests 04/09/24 05:55 04/06/24 06:09 Test 04/09/24 05:55 Range/Units Serum Glucose 103 74-106 mg/dL Problem List/Assessment/Plan Problem List/Assessment/Plan Acute kidney injury superimposed Chronic Kidney Disease secondary hemodynamic mediated Congestive heart failure exacerbation cardiomyopathy, ejection fraction 15% Methamphetamine abuse Hyponatremia due excess H2O Recommendations Function slightly worsened today Increased urine output DC lisinopril Fluid restriction Furosemide 20 mg q.day KCL replacement We will continue to follow Plan discussed with: Patient My Orders My Orders Orders - JOCELYNE SAMUELS MD Procedure Category Date Status Time Urine Sodium LAB 04/10/24 Logged 10:14 Urine LAB 04/10/24 Logged Protein/Creatinine Furosemide Tablet PHA 04/11/24 In Process (Lasix Tablet) 10:00 Dietary Evaluation Review Recommendations by RD: Dietary education by RD Comments: 1) Change diet order from 2g Na to renal cardiac diet 2) Refer to outpatient RD for weight management 3) Recommend tobacco and amphetamine cessation Expected Outcomes/Goals: 1) appetite and labs to improve 2) f/u in 3-5 days JOCELYNE SAMUELS MD Apr 10, 2024 12:03
[2024-04-10 12:21] VITALS: BP 109/79; PULSE 86; TEMP 36.7
[2024-04-10 13:27] VITALS: BP 114/67; PULSE 80; RESP 18; TEMP 98.2; O2SAT 96
[2024-04-11] MEDS ORDERED: FUROSEMIDE 20 MG TAB PO SCH (10:00)
== END 2024-04-10 14:00 | disposition home or self-care (01) | DRG 194 ==
LOC: ER 17:04 → TELE 19:40 → TELE-EAST 04-04 15:48
PROVIDERS: ADMIT Internal Medicine Geriatric Medicine; ATTEND Internal Medicine Geriatric Medicine
DX: I13.0 Hypertensive heart and chronic kidney disease with heart failure and stage 1 through stage 4 chronic kidney disease, or unspecified chronic kidney disease (principal); I21.A1 Myocardial infarction type 2; I27.20 Pulmonary hypertension, unspecified; E87.1 Hypo-osmolality and hyponatremia; I50.23 Acute on chronic systolic (congestive) heart failure; N17.9 Acute kidney failure, unspecified; I42.7 Cardiomyopathy due to drug and external agent; N18.32 Chronic kidney disease, stage 3b; G89.29 Other chronic pain; F17.210 Nicotine dependence, cigarettes, uncomplicated; F15.10 Other stimulant abuse, uncomplicated; Z80.3 Family history of malignant neoplasm of breast; Z91.199 Patient's noncompliance with other medical treatment and regimen due to unspecified reason; Z79.899 Other long term (current) drug therapy
CPT/HCPCS: 36415; 71045; 80048; 80061; 80307; 81001; 83036; 83735; 83880; 84443; 84484; 85025; 85610; 85730; 93005; 93306; 93970; 99291; G0378